=== PATIENT | male | born 1935 | race Caucasian/White ===

== ENCOUNTER 2017-10-09 10:35 | Emergency (ER) | payer MEDICARE ==
[2017-10-09] MEDS ORDERED: KETOROLAC 30 MG/ML 1 ML VIAL IVP STA (11:18)
[2017-10-09] MEDS ORDERED: DIAZEPAM 5 MG/ML 2 ML INJ IVP STA (11:18)
--- NOTE | 2017-10-09 11:22 | ED ---
General Adult HPI - General Chief complaint: Neck Pain/Injury Stated complaint: Neck Pain Time Seen by Provider: 10/09/17 10:47 Source: patient Mode of arrival: wheelchair Limitations: physical limitation - History of Present Illness Initial comments: Patient is an 82-year-old male presents with a chief complaint of left-sided neck pain. The patient states this started yesterday. The patient cannot identify an inciting incident. Patient states that overnight his neck pain became much worse. He has limited range of motion with turning his head to the left. He describes pain along the left lateral aspect of his neck along the sternocleidomastoid muscle and extending into his mormonism. There are no alleviating factors. Timing is constant. - Related Data Home Medications Medication Instructions Recorded Confirmed Simvastatin [Zocor] 40 mg PO HS 11/14/13 10/09/17 Warfarin [Coumadin] 2.5 mg PO SUMOTUWEFRSA 10/09/17 10/09/17 Warfarin [Coumadin] 5 mg PO TH 10/09/17 10/09/17 Previous Rx's Medication Instructions Recorded Aspirin 81 mg PO DAILY #30 chew 12/27/15 Diazepam [Valium] 5 mg PO DAILY PRN 3 Days #3 tab 10/09/17 Ibuprofen [Motrin] 800 mg PO TID #20 tab 10/09/17 Allergies Allergy/AdvReac Type Severity Reaction Status Date / Time No Known Allergies Allergy Verified 10/09/17 11:23 Review of Systems ROS Statement: Those systems with pertinent positive or pertinent negative responses have been documented in the HPI. ROS Other: All systems not noted in ROS Statement are negative. Musculoskeletal: Reports: other (Neck pain) Past Medical History Past Medical History: Atrial Fibrillation, CVA/TIA, Eye Disorder, Hearing Disorder / Deafness, Hyperlipidemia, Hypertension Additional Past Medical History / Comment(s): CVA 2010; POSS TIA 12/24/15. PAD , LOWER EXTREMITIES. HX CATARACTS. RT URETERAL CALCULUS CURRENTLY, C/O PAIN AND BLOOD IN URINE. History of Any Multi-Drug Resistant Organisms: None Reported Past Surgical History: Cholecystectomy, Hernia Repair Additional Past Surgical History / Comment(s): EXC CATARACTS W/ IMPLANTS. NOVEMBER 2013 ABD AORTOGRAM, 11/2015. RT ESWL 01/15/16. Past Anesthesia/Blood Transfusion Reactions: No Reported Reaction Past Psychological History: No Psychological Hx Reported Smoking Status: Current every day smoker Past Alcohol Use History: Occasional Past Drug Use History: None Reported - Past Family History Mother Family Medical History: Diabetes Mellitus General Exam Limitations: physical limitation General appearance: alert, in no apparent distress Head exam: Present: atraumatic, normocephalic Eye exam: Present: normal appearance, PERRL ENT exam: Present: mucous membranes moist, TM's normal bilaterally Neck exam: Present: tenderness, other (Patient is tenderness along the SCM on the left. There is limited range of motion, especially when turning his neck to the left and looking down.) Respiratory exam: Present: normal lung sounds bilaterally. Absent: respiratory distress, wheezes Cardiovascular Exam: Present: regular rate, normal rhythm GI/Abdominal exam: Present: soft. Absent: distended, tenderness Rectal exam: Present: deferred Extremities exam: Present: normal inspection Back exam: Present: normal inspection Neurological exam: Present: alert, oriented X3 Psychiatric exam: Present: normal affect, normal mood Skin exam: Present: warm, dry, intact Course Vital Signs 10/09/17 10/09/17 10/09/17 10:36 11:40 12:40 Temperature 97.0 F L Pulse Rate 84 76 68 Respiratory 18 20 20 Rate Blood Pressure 133/86 162/87 142/88 O2 Sat by Pulse 100 98 98 Oximetry 10/09/17 13:40 Temperature Pulse Rate 64 Respiratory 20 Rate Blood Pressure 157/86 O2 Sat by Pulse 98 Oximetry Medical Decision Making - Medical Decision Making Patient presents with a chief complaint of neck pain. On initial evaluation, vital signs are stable, patient is in mild distress secondary to pain. History and physical examination most consistent with torticollis however given patient' s past medical history he will be evaluated with basic blood work, INR, and EKG. Patient given Toradol and Valium for pain control. 2:12 PM Lab evaluation this patient is unremarkable, INR is stable at 2.4. EKG performed at 11:24 AM shows atrial fibrillation but is otherwise unremarkable. Patient states that he has a history of atrial fibrillation. After treatment, the patient was treated further with myofascial release with moderate jew of range of motion. The patient states that he feels better. At this time, the patient is stable for discharge and follow-up with primary care. He was instructed to follow up in 1-2 days, return to the emergency department if symptoms worsen or change. The was instructed to find a ride home from the emergency department given that he was given a dose of Valium. He was prescribed Motrin 3 tablets of Valium and instructed to use them only if he is having trouble getting to sleep. Patient verbalizes understanding and is stable for discharge at this time. - Lab Data Result diagrams: 10/09/17 11:45 10/09/17 11:45 Lab Results 10/09/17 10/09/17 10/09/17 Range/Units 11:45 11:45 11:45 WBC 8.6 (3.8-10.6) k/uL RBC 5.20 (4.30-5.90) m/uL Hgb 16.6 (13.0-17.5) gm/dL Hct 49.7 (39.0-53.0) % MCV 95.7 (80.0-100.0) fL MCH 31.9 (25.0-35.0) pg MCHC 33.3 (31.0-37.0) g/dL RDW 13.0 (11.5-15.5) % Plt Count 253 (150-450) k/uL Neutrophils % 69 % Lymphocytes % 19 % Monocytes % 7 % Eosinophils % 3 % Basophils % 1 % Neutrophils # 6.0 (1.3-7.7) k/uL Lymphocytes # 1.6 (1.0-4.8) k/uL Monocytes # 0.6 (0-1.0) k/uL Eosinophils # 0.3 (0-0.7) k/uL Basophils # 0.1 (0-0.2) k/uL PT 21.8 H (9.0-12.0) sec INR 2.4 H (<1.2) Sodium 144 (137-145) mmol/L Potassium 4.9 (3.5-5.1) mmol/L Chloride 109 H (98-107) mmol/L Carbon Dioxide 22 (22-30) mmol/L Anion Gap 13 mmol/L BUN 17 (9-20) mg/dL Creatinine 0.94 (0.66-1.25) mg/dL Est GFR (CKD-EPI)AfAm 89 (>60 ml/min/1.73 sqM) Est GFR (CKD-EPI)NonAf 77 (>60 ml/min/1.73 sqM) Glucose 82 (74-99) mg/dL Calcium 9.0 (8.4-10.2) mg/dL Disposition Clinical Impression: Strain of neck muscle, Torticollis Disposition: HOME SELF-CARE Condition: Good Instructions: Spasmodic Torticollis (ED) Prescriptions: Diazepam [Valium] 5 mg PO DAILY PRN 3 Days #3 tab PRN Reason: muscle spasm Ibuprofen [Motrin] 800 mg PO TID #20 tab Is patient prescribed a controlled substance at d/c from ED?: Yes When asked, does pt state using other controlled substances?: No If prescribed controlled substance>3 days was MAPS reviewed?: Yes Referrals: None,Stated [Primary Care Provider] - 1-2 days Yelena Last MD [STAFF PHYSICIAN] - 1-2 days
[2017-10-09 12:02] LABS: Basophils # (A) 0.1 k/uL (0-0.2); Basophils % (A) 1 %; Eosinophils # (A) 0.3 k/uL (0-0.7); Eosinophils % (A) 3 %; HCT 49.7 % (39.0-53.0); HGB 16.6 gm/dL (13.0-17.5); Lymphocytes # (A) 1.6 k/uL (1.0-4.8); Lymphocytes % (A) 19 %; MCH 31.9 pg (25.0-35.0); MCHC 33.3 g/dL (31.0-37.0); MCV 95.7 fL (80.0-100.0); Mean Platelet Volume 7.7; Monocytes # (A) 0.6 k/uL (0-1.0); Monocytes % (A) 7 %; Neutrophils % (A) 69 %; Platelet Count 253 k/uL (150-450); WBC 8.6 k/uL (3.8-10.6)
[2017-10-09 12:10] LABS: INR 2.4 (<1.2); Prothrombin Time 21.8 sec (9.0-12.0)
[2017-10-09 12:11] LABS: Potassium 4.9 mmol/L (3.5-5.1)
[2017-10-09 13:58] VITALS: RESP 20
[2017-10-09 14:51] VITALS: BP 151/56; PULSE 71; TEMP 98.3
== END 2017-10-09 14:45 | disposition home or self-care (01) ==
LOC: EC 10:35
DX: S16.1XXA Strain of muscle, fascia and tendon at neck level, initial encounter (principal); M43.6 Torticollis; I48.91 Unspecified atrial fibrillation; E78.5 Hyperlipidemia, unspecified; I10 Essential (primary) hypertension; F17.200 Nicotine dependence, unspecified, uncomplicated; Z86.73 Personal history of transient ischemic attack (TIA), and cerebral infarction without residual deficits; Z79.01 Long term (current) use of anticoagulants; Z79.899 Other long term (current) drug therapy; X58.XXXA Exposure to other specified factors, initial encounter
CPT/HCPCS: 99283; 96374; 96375; 36415; 93005; 80048; 85025; 85610; J3360; J1885

== ENCOUNTER → 2018-02-16 | Outpatient (CLI) | payer MEDICARE ==
[2018-02-16 10:53] LABS: Basophils # (A) 0.1 k/uL (0-0.2); Basophils % (A) 0 %; Eosinophils # (A) 0.4 k/uL (0-0.7); Eosinophils % (A) 4 %; HGB 15.5 gm/dL (13.0-17.5); Lymphocytes # (A) 2.4 k/uL (1.0-4.8); Lymphocytes % (A) 23 %; MCH 31.4 pg (25.0-35.0); MCHC 32.3 g/dL (31.0-37.0); MCV 97.3 fL (80.0-100.0); Mean Platelet Volume 7.6; Monocytes # (A) 0.6 k/uL (0-1.0); Monocytes % (A) 6 %; Neutrophils # (A) 6.8 k/uL (1.3-7.7); Neutrophils % (A) 65 %; Platelet Count 276 k/uL (150-450); RBC 4.93 m/uL (4.30-5.90); RDW 13.1 % (11.5-15.5); WBC 10.6 k/uL (3.8-10.6)
[2018-02-16 10:59] LABS: Albumin 4.1 g/dL (3.5-5.0); Calcium 9.1 mg/dL (8.4-10.2); Potassium 4.1 mmol/L (3.5-5.1); Total Bilirubin 0.7 mg/dL (0.2-1.3); Total Protein 7.4 g/dL (6.3-8.2)
== END | disposition home or self-care (01) ==
LOC: LABWHC1 10:20
PROVIDERS: ATTEND Internal Medicine Cardiovascular Disease
DX: E78.5 Hyperlipidemia, unspecified (principal); I48.91 Unspecified atrial fibrillation
CPT/HCPCS: 36415; 80053; 80061; 85025

== ENCOUNTER → 2018-11-26 | Outpatient (CLI) | payer MEDICARE ==
[2018-11-26 17:54] LABS: African American GFR (CKD) 65.3 (60.0-200.0); Albumin 4.2 g/dL (3.80-4.90); Albumin/Globulin Ratio 1.83 (1.60-3.17); Anion Gap 11.3 mmol/L (4.00-12.00); BUN/Creat Ratio 12.5 Ratio (12.00-20.00); Calcium 9.1 mg/dL (8.7-10.3); Carbon Dioxide 26.7 mmol/L (21.6-31.8); Globulin 2.3 g/dL (1.6-3.3); LDL Cholesterol,Calculated 65.4 mg/dL (0.0-131.0); Potassium 4.2 mmol/L (3.5-5.5); Total Bilirubin 0.4 mg/dL (0.3-1.2); Total Protein 6.5 g/dL (6.2-8.2); VLDL Calculation 56.6 mg/dL (5.00-40.00)
== END | disposition home or self-care (01) ==
LOC: LABWHC1 10:15
PROVIDERS: ATTEND Internal Medicine Cardiovascular Disease
DX: I48.91 Unspecified atrial fibrillation (principal); E78.5 Hyperlipidemia, unspecified
CPT/HCPCS: 36415; 80053; 80061

== ENCOUNTER 2019-11-12 03:46 | Emergency (ER) | payer MEDICARE ==
[2019-11-12 03:51] VITALS: RESP 18; TEMP 98
[2019-11-12] MEDS ORDERED: HYDROmorphone 1 MG/ML 1 ML SYRINGE IVP STA (03:51)
[2019-11-12 04:07] LABS: Basophils % (A) 0 %; Eosinophils # (A) 0.2 k/uL (0-0.7); Eosinophils % (A) 1 %; HCT 51.2 % (39.0-53.0); HGB 16.6 gm/dL (13.0-17.5); Lymphocytes # (A) 0.7 k/uL (1.0-4.8); Lymphocytes % (A) 5 %; MCH 31.3 pg (25.0-35.0); MCHC 32.4 g/dL (31.0-37.0); MCV 96.7 fL (80.0-100.0); Mean Platelet Volume 8.1; Monocytes # (A) 0.6 k/uL (0-1.0); Monocytes % (A) 4 %; Neutrophils # (A) 12.5 k/uL (1.3-7.7); Neutrophils % (A) 89 %; Platelet Count 240 k/uL (150-450); RDW 13.3 % (11.5-15.5); WBC 14.1 k/uL (3.8-10.6)
[2019-11-12 04:11] LABS: INR 2.7 (<1.2); Prothrombin Time 26.3 sec (9.0-12.0)
[2019-11-12 04:12] LABS: Albumin 4.4 g/dL (3.5-5.0); Partial Thromboplastin Time 33.9 sec (22.0-30.0); Potassium 4.5 mmol/L (3.5-5.1); Total Bilirubin 0.8 mg/dL (0.2-1.3); Total Protein 7.6 g/dL (6.3-8.2)
[2019-11-12] MEDS ORDERED: LABETALOL 5 MG/ML VIAL MDV IVP STA (04:15)
[2019-11-12 04:31] LABS: Appearance,Urine Clear (Clear); Bilirubin,Urine Negative (Negative); Blood,Urine Moderate (Negative); Color,Urine Yellow; Glucose,Urine (UA) Negative (Negative); Ketones,Urine 1+ (Negative); Leukocyte Esterase,Urine Trace (Negative); Mucus,Urine Rare /hpf; Nitrite,Urine Negative (Negative); PH, Urine 5.5 (5.0-8.0); Protein,Urine 1+ (Negative); RBC,Urine 2 /hpf (0-5); Specific Gravity,Urine 1.013 (1.001-1.035); Squamous Epithelial Cell,Urine <1 /hpf (0-4); Urobilinogen,Urine <2.0 mg/dL (<2.0); WBC,Urine 5 /hpf (0-5)
--- NOTE | 2019-11-12 05:26 | CT ---
EXAMINATION TYPE: CT abdomen pelvis wo con DATE OF EXAM: 11/12/2019 COMPARISON: 12/30/2015 HISTORY: Flank pain/ abdomnal pain CT DLP: 527.4 mGycm Automated exposure control for dose reduction was used. Exam performed without contrast. Heart is enlarged. There is some mild atelectasis at the lung bases. Liver shows no focal defect. The re are multiple gallstones. The bile ducts are not dilated. Spleen and pancreas appear normal. The st omach is intact. There is no adrenal mass. There is right side perinephric edema. There is right-sided hydronephrosis and proximal hydroureter. I see no ureteral calculus. There are multiple calculi in both kidneys that measure up to 1.4 cm. There is no hydronephrosis of the left kidney. There is no retroperitoneal adenopathy. Bladder distends smoothly. There is large left side scrotal h ernia that contains sigmoid colon. Lower extent of a hernia is not included on the exam. There is no free fluid in the pelvis. There is no mesenteric edema. There is no ascites or free air. I see no evidence of a bowel obstruction. The appendix is lateral and appears normal. The lumbar vert ebra have normal alignment. There is no compression fracture. Posterior elements are intact. The bony pelvis is intact. IMPRESSION: Multiple bilateral renal calculi. Moderate right-sided hydronephrosis and proximal hydroureter. No ob structing calculus seen. There is clearing of the large calculus in the proximal right ureter compare d to old exam. There is significant right side perinephric edema that suggests acute obstruction. Normal appendix. Mild atelectasis at the lung bases. Cholelithiasis unchanged. Large left inguinal hernia unchanged.
--- NOTE | 2019-11-12 06:18 | ED ---
Abdominal Pain HPI - General Chief Complaint: Abdominal Pain Stated Complaint: Abdominal pain Time Seen by Provider: 11/12/19 03:57 Source: patient, EMS Mode of arrival: EMS Limitations: no limitations - History of Present Illness MD Complaint: flank pain Onset/Timin -: hour(s) Location: R flank Radiation: other (Right groin) Migration to: no migration Severity: severe Quality: sharp Consistency: constant Improves With: nothing Worsens With: nothing Associated Symptoms: nausea - Related Data Home Medications Medication Instructions Recorded Confirmed Simvastatin [Zocor] 40 mg PO HS 11/14/13 10/09/17 Warfarin [Coumadin] 2.5 mg PO SUMOTUWEFRSA 10/09/17 10/09/17 Warfarin [Coumadin] 5 mg PO TH 10/09/17 10/09/17 Previous Rx's Medication Instructions Recorded Aspirin 81 mg PO DAILY #30 chew 12/27/15 Diazepam [Valium] 5 mg PO DAILY PRN 3 Days #3 tab 10/09/17 Ibuprofen [Motrin] 800 mg PO TID #20 tab 10/09/17 Allergies Allergy/AdvReac Type Severity Reaction Status Date / Time No Known Allergies Allergy Verified 10/09/17 11:23 Review of Systems ROS Statement: Those systems with pertinent positive or pertinent negative responses have been documented in the HPI. ROS Other: All systems not noted in ROS Statement are negative. Constitutional: Denies: fever, chills Respiratory: Denies: cough, dyspnea Cardiovascular: Denies: chest pain, palpitations, edema Gastrointestinal: Reports: as per HPI, nausea. Denies: abdominal pain, vomiting, diarrhea, constipation Genitourinary: Denies: dysuria, hematuria Musculoskeletal: Denies: back pain Skin: Denies: rash Neurological: Denies: headache, weakness, numbness Past Medical History Past Medical History: Atrial Fibrillation, CVA/TIA, Eye Disorder, Hearing Disorder / Deafness, Hyperlipidemia, Hypertension Additional Past Medical History / Comment(s): CVA 2010; POSS TIA 12/24/15. PAD, LOWER EXTREMITIES. HX CATARACTS. RT URETERAL CALCULUS CURRENTLY, C/O PAIN AND BLOOD IN URINE. History of Any Multi-Drug Resistant Organisms: None Reported Past Surgical History: Cholecystectomy, Hernia Repair Additional Past Surgical History / Comment(s): EXC CATARACTS W/ IMPLANTS. NOVEMBER 2013 ABD AORTOGRAM, 11/2015. RT ESWL 01/15/16. Past Anesthesia/Blood Transfusion Reactions: No Reported Reaction Past Psychological History: No Psychological Hx Reported Smoking Status: Current every day smoker Past Alcohol Use History: Occasional Past Drug Use History: None Reported - Past Family History Mother Family Medical History: Diabetes Mellitus General Exam Limitations: no limitations General appearance: alert, in distress Head exam: Present: atraumatic, normocephalic Eye exam: Present: normal appearance. Absent: scleral icterus, conjunctival injection Respiratory exam: Present: normal lung sounds bilaterally. Absent: respiratory distress, wheezes, rales, rhonchi, stridor Cardiovascular Exam: Present: regular rate, normal rhythm, systolic murmur, other (Patient is wearing site monitor). Absent: diastolic murmur, rubs, gallop GI/Abdominal exam: Present: soft, normal bowel sounds. Absent: distended, tenderness, guarding, rebound, rigid, mass, pulsatile mass, hernia Extremities exam: Present: normal inspection, normal capillary refill. Absent: pedal edema, calf tenderness Back exam: Present: normal inspection. Absent: CVA tenderness (R), CVA tenderness (L) Neurological exam: Present: alert Skin exam: Present: warm, dry, intact, normal color. Absent: rash Course Vital Signs 11/12/19 11/12/19 03:47 06:19 Temperature 98 F Pulse Rate 89 70 Respiratory 18 18 Rate Blood Pressure 195/137 140/76 O2 Sat by Pulse 98 98 Oximetry Medical Decision Making - Medical Decision Making Patient is a 4-year-old man with history kidney stones, who states she is having identical pain to previous episodes stone. Patient workup does reveal right- sided hydronephrosis and hydroureter there is not an obstructing stone visualized with the patient's pain did spontaneously resolve and clinical picture consistent with stone passed just prior to CT. The patient is observed and there is no recurrence of pain and he does request to go home. We discussed other return parameters and he will follow with urology. - Lab Data Result diagrams: 11/12/19 03:50 11/12/19 03:50 Lab Results 11/12/19 11/12/19 11/12/19 Range/Units 03:50 03:50 03:50 WBC 14.1 H (3.8-10.6) k/uL RBC 5.30 (4.30-5.90) m/uL Hgb 16.6 (13.0-17.5) gm/dL Hct 51.2 (39.0-53.0) % MCV 96.7 (80.0-100.0) fL MCH 31.3 (25.0-35.0) pg MCHC 32.4 (31.0-37.0) g/dL RDW 13.3 (11.5-15.5) % Plt Count 240 (150-450) k/uL Neutrophils % 89 % Lymphocytes % 5 % Monocytes % 4 % Eosinophils % 1 % Basophils % 0 % Neutrophils # 12.5 H (1.3-7.7) k/uL Lymphocytes # 0.7 L (1.0-4.8) k/uL Monocytes # 0.6 (0-1.0) k/uL Eosinophils # 0.2 (0-0.7) k/uL Basophils # 0.0 (0-0.2) k/uL PT 26.3 H (9.0-12.0) sec INR 2.7 H (<1.2) APTT 33.9 H (22.0-30.0) sec Sodium 136 L (137-145) mmol/L Potassium 4.5 (3.5-5.1) mmol/L Chloride 105 (98-107) mmol/L Carbon Dioxide 19 L (22-30) mmol/L Anion Gap 12 mmol/L BUN 15 (9-20) mg/dL Creatinine 1.04 (0.66-1.25) mg/dL Est GFR (CKD-EPI)AfAm 77 (>60 ml/min/1.73 sqM) Est GFR (CKD-EPI)NonAf 67 (>60 ml/min/1.73 sqM) Glucose 116 H (74-99) mg/dL Calcium 9.0 (8.4-10.2) mg/dL Total Bilirubin 0.8 (0.2-1.3) mg/dL AST 28 (17-59) U/L ALT 16 (4-49) U/L Alkaline Phosphatase 88 (38-126) U/L Troponin I (0.000-0.034) ng/mL Total Protein 7.6 (6.3-8.2) g/dL Albumin 4.4 (3.5-5.0) g/dL Urine Color Urine Appearance (Clear) Urine pH (5.0-8.0) Ur Specific [place] (1.001-1.035) Urine Protein (Negative) Urine Glucose (UA) (Negative) Urine Ketones (Negative) Urine Blood (Negative) Urine Nitrite (Negative) Urine Bilirubin (Negative) Urine Urobilinogen (<2.0) mg/dL Ur Leukocyte Esterase (Negative) Urine RBC (0-5) /hpf Urine WBC (0-5) /hpf Ur Squamous Epith Cells (0-4) /hpf Urine Mucus (None) /hpf 11/12/19 11/12/19 Range/Units 03:50 04:01 WBC (3.8-10.6) k/uL RBC (4.30-5.90) m/uL Hgb (13.0-17.5) gm/dL Hct (39.0-53.0) % MCV (80.0-100.0) fL MCH (25.0-35.0) pg MCHC (31.0-37.0) g/dL RDW (11.5-15.5) % Plt Count (150-450) k/uL Neutrophils % % Lymphocytes % % Monocytes % % Eosinophils % % Basophils % % Neutrophils # (1.3-7.7) k/uL Lymphocytes # (1.0-4.8) k/uL Monocytes # (0-1.0) k/uL Eosinophils # (0-0.7) k/uL Basophils # (0-0.2) k/uL PT (9.0-12.0) sec INR (<1.2) APTT (22.0-30.0) sec Sodium (137-145) mmol/L Potassium (3.5-5.1) mmol/L Chloride (98-107) mmol/L Carbon Dioxide (22-30) mmol/L Anion Gap mmol/L BUN (9-20) mg/dL Creatinine (0.66-1.25) mg/dL Est GFR (CKD-EPI)AfAm (>60 ml/min/1.73 sqM) Est GFR (CKD-EPI)NonAf (>60 ml/min/1.73 sqM) Glucose (74-99) mg/dL Calcium (8.4-10.2) mg/dL Total Bilirubin (0.2-1.3) mg/dL AST (17-59) U/L ALT (4-49) U/L Alkaline Phosphatase (38-126) U/L Troponin I <0.012 (0.000-0.034) ng/mL Total Protein (6.3-8.2) g/dL Albumin (3.5-5.0) g/dL Urine Color Yellow Urine Appearance Clear (Clear) Urine pH 5.5 (5.0-8.0) Ur Specific [place] 1.013 (1.001-1.035) Urine Protein 1+ H (Negative) Urine Glucose (UA) Negative (Negative) Urine Ketones 1+ H (Negative) Urine Blood Moderate H (Negative) Urine Nitrite Negative (Negative) Urine Bilirubin Negative (Negative) Urine Urobilinogen <2.0 (<2.0) mg/dL Ur Leukocyte Esterase Trace H (Negative) Urine RBC 2 (0-5) /hpf Urine WBC 5 (0-5) /hpf Ur Squamous Epith Cells <1 (0-4) /hpf Urine Mucus Rare H (None) /hpf Disposition Clinical Impression: Calculus of kidney Disposition: HOME SELF-CARE Condition: Good Instructions (If sedation given, give patient instructions): Kidney Stones (ED) Is patient prescribed a controlled substance at d/c from ED?: No Referrals: None,Stated [Primary Care Provider] - 1-2 days Oskar Alcala MD [STAFF PHYSICIAN] - 1-2 days
[2019-11-12 06:27] VITALS: BP 140/76; PULSE 70
== END 2019-11-12 06:28 | disposition home or self-care (01) ==
LOC: EC 03:46
DX: N13.2 Hydronephrosis with renal and ureteral calculous obstruction (principal); F17.200 Nicotine dependence, unspecified, uncomplicated; E78.5 Hyperlipidemia, unspecified; I48.91 Unspecified atrial fibrillation; I10 Essential (primary) hypertension; Z79.01 Long term (current) use of anticoagulants; Z79.899 Other long term (current) drug therapy; Z86.73 Personal history of transient ischemic attack (TIA), and cerebral infarction without residual deficits; Z98.42 Cataract extraction status, left eye; Z98.41 Cataract extraction status, right eye; Z96.1 Presence of intraocular lens; Z90.49 Acquired absence of other specified parts of digestive tract
CPT/HCPCS: 99285; 96374; 96375; 36415; 93005; 80053; 84484; 85025; 85610; 85730; 81001; 74176; J1170

== ENCOUNTER → 2021-12-23 | Outpatient (CLI) | payer MEDICARE ==
[2021-12-23 14:40] LABS: African American GFR (CKD) 55.5 (60.0-200.0); Anion Gap 9.8 mmol/L (10.00-18.00); BUN/Creat Ratio 15.78 Ratio (12.00-20.00); Blood Urea Nitrogen 21.3 mg/dL (9.0-27.0); Calcium 9.3 mg/dL (8.7-10.3); Carbon Dioxide 26.4 mmol/L (20.0-27.5); Non-African American GFR(CKD) 47.9 (60.0-200.0)
== END | disposition home or self-care (01) ==
LOC: LABWHC1 10:07
PROVIDERS: ATTEND Internal Medicine Interventional Cardiology
DX: I10 Essential (primary) hypertension (principal)
CPT/HCPCS: 36415; 80048

== ENCOUNTER 2022-01-01 15:16 | Inpatient (IN) | payer MEDICARE ==
[2022-01-01 15:34] LABS: Glucose,Whole Blood 92 mg/dL (70-110)
--- NOTE | 2022-01-01 15:38 | ED ---
Neuro HPI - General Chief Complaint: Neuro Symptoms/Deficit Stated Complaint: Neuro Issues Time Seen by Provider: 01/01/22 15:20 Source: patient, EMS Mode of arrival: EMS - History of Present Illness Is the patient presenting with stroke symptoms?: Yes Initial Comments: 86-year-old male past history of TIA, A. fib on Coumadin, hypertension and hyperlipidemia presents to the emergency department with strokelike symptoms. States he went to bed at 1 AM last night. He woke at 11 AM and had stroke symptoms. Has weakness to his right lower extremity and right arm. Also had right facial droop. He attempted to call a neighbor however was having diffi culties. Finally was able to flag someone down around 3 PM who called an ambulance. He is on Coumadin and takes it as directed. Denies any missed doses. Denies any chest or abdominal pain. Has mild associated shortness of breath. No history of heart failure. No recent head trauma. No other a lleviating, precipitating or modifying factors - Related Data Home Medications: Home Medications Medication Instructions Recorded Confirmed Simvastatin [Zocor] 40 mg PO DAILY 11/14/13 01/01/22 Warfarin [Coumadin] 2.5 mg PO HS 01/01/22 01/01/22 lisinopriL [Zestril] 5 mg PO DAILY 01/01/22 01/01/22 Previous Rx's Medication Instructions Recorded Aspirin 81 mg PO DAILY #30 chew 12/27/15 Allergies/Adverse Reactions: Allergies Allergy/AdvReac Type Severity Reaction Status Date / Time No Known Allergies Allergy Verified 01/01/22 17:05 Review of Systems ROS Statement: Those systems with pertinent positive or pertinent negative responses have been documented in the HPI. ROS Other: All systems not noted in ROS Statement are negative. General Exam Limitations: physical limitation General appearance: alert, in no apparent distress, anxious Eye exam: Present: normal appearance, PERRL, EOMI. Absent: scleral icterus, conjunctival injection, periorbital swelling ENT exam: Present: mucous membranes moist, other (right lower facial droop) Neck exam: Present: normal inspection. Absent: tenderness, meningismus, lymphadenopathy Respiratory exam: Present: normal lung sounds bilaterally. Absent: respiratory distress, wheezes, rales, rhonchi, stridor Cardiovascular Exam: Present: normal rhythm, bradycardia Extremities exam: Present: other (3/5 strength RLE. Drift RUE. 5/5 muscle strength LUE/LLE. ) Neurological exam: Present: alert, oriented X3, other (mild dysarthria and expressive aphasia) Skin exam: Present: warm, dry, intact, normal color. Absent: rash Stroke MDM - Lab Data Result diagrams: 01/01/22 15:21 01/01/22 15:21 Lab Results 01/01/22 01/01/22 01/01/22 Range/Units 15:20 15:21 15:21 WBC 8.4 (3.8-10.6) k/uL RBC 4.92 (4.30-5.90) m/uL Hgb 14.3 (13.0-17.5) gm/dL Hct 45.4 (39.0-53.0) % MCV 92.3 (80.0-100.0) fL MCH 29.0 (25.0-35.0) pg MCHC 31.5 (31.0-37.0) g/dL RDW 15.3 (11.5-15.5) % Plt Count 230 (150-450) k/uL MPV 8.4 Neutrophils % 71 % Lymphocytes % 17 % Monocytes % 7 % Eosinophils % 3 % Basophils % 1 % Neutrophils # 6.0 (1.3-7.7) k/uL Lymphocytes # 1.4 (1.0-4.8) k/uL Monocytes # 0.6 (0-1.0) k/uL Eosinophils # 0.2 (0-0.7) k/uL Basophils # 0.1 (0-0.2) k/uL Hypochromasia Slight PT 27.0 H (9.0-12.0) sec INR 2.7 H (<1.2) APTT 34.3 H (22.0-30.0) sec Sodium (137-145) mmol/L Potassium (3.5-5.1) mmol/L Chloride (98-107) mmol/L Carbon Dioxide (22-30) mmol/L Anion Gap mmol/L BUN (9-20) mg/dL Creatinine (0.66-1.25) mg/dL Est GFR (CKD-EPI)AfAm (>60 ml/min/1.73 sqM) Est GFR (CKD-EPI)NonAf (>60 ml/min/1.73 sqM) Glucose (74-99) mg/dL POC Glucose (mg/dL) 92 (70-110) mg/dL POC Glu Reclamation Worker Faith Mchugh Calcium (8.4-10.2) mg/dL Total Bilirubin (0.2-1.3) mg/dL AST (17-59) U/L ALT (4-49) U/L Alkaline Phosphatase (38-126) U/L Troponin I (0.000-0.034) ng/mL NT-Pro-B Natriuret Pep pg/mL Total Protein (6.3-8.2) g/dL Albumin (3.5-5.0) g/dL 01/01/22 01/01/22 01/01/22 Range/Units 15:21 15:21 15:21 WBC (3.8-10.6) k/uL RBC (4.30-5.90) m/uL Hgb (13.0-17.5) gm/dL Hct (39.0-53.0) % MCV (80.0-100.0) fL MCH (25.0-35.0) pg MCHC (31.0-37.0) g/dL RDW (11.5-15.5) % Plt Count (150-450) k/uL MPV Neutrophils % % Lymphocytes % % Monocytes % % Eosinophils % % Basophils % % Neutrophils # (1.3-7.7) k/uL Lymphocytes # (1.0-4.8) k/uL Monocytes # (0-1.0) k/uL Eosinophils # (0-0.7) k/uL Basophils # (0-0.2) k/uL Hypochromasia PT (9.0-12.0) sec INR (<1.2) APTT (22.0-30.0) sec Sodium 142 (137-145) mmol/L Potassium 4.7 (3.5-5.1) mmol/L Chloride 107 (98-107) mmol/L Carbon Dioxide 24 (22-30) mmol/L Anion Gap 11 mmol/L BUN 14 (9-20) mg/dL Creatinine 1.26 H (0.66-1.25) mg/dL Est GFR (CKD-EPI)AfAm 60 (>60 ml/min/1.73 sqM) Est GFR (CKD-EPI)NonAf 52 (>60 ml/min/1.73 sqM) Glucose 96 (74-99) mg/dL POC Glucose (mg/dL) (70-110) mg/dL POC Glu Reclamation Worker ID Calcium 9.2 (8.4-10.2) mg/dL Total Bilirubin 0.7 (0.2-1.3) mg/dL AST 27 (17-59) U/L ALT 18 (4-49) U/L Alkaline Phosphatase 113 (38-126) U/L Troponin I <0.012 (0.000-0.034) ng/mL NT-Pro-B Natriuret Pep 1350 pg/mL Total Protein 7.4 (6.3-8.2) g/dL Albumin 4.2 (3.5-5.0) g/dL - Medical Decision Making Upon arrival patient was placed into trauma 2. A thorough history and physical exam was performed patient does have right-sided facial droop, right upper extremity drift and right lower extremity weakness. NIH is assessed and is 7. IV access is established and laboratory studies were conducted. Coumadin level is therapeutic at 2.7. CT of the brain as well as CT angiography is negative for any acute process. CT demonstrates cerebral atrophy and chronic small vessel ischemia. I did speak with Dr. mcintosh. Patient will be medically managed. He is outside the window for TPA and on Coumadin. He was given aspirin and a statin. Patient was agreeable to admission with neurology consultation. He was taken to the floor in stable condition with improvement in the weakness in his right lower extremity EKG demonstrates A. fib with a rate of 58. QRS 104. QTC of 437. No acute ST segment elevations or depressions 01/01/22 19:11 Past Medical History Past Medical History: Atrial Fibrillation, CVA/TIA, Eye Disorder, Hearing Disorder / Deafness, Hyperlipidemia, Hypertension Additional Past Medical History / Comment(s): CVA 2010; POSS TIA 12/24/15. PAD, LOWER EXTREMITIES. HX CATARACTS. RT URETERAL CALCULUS CURRENTLY, C/O PAIN AND BLOOD IN URINE. History of Any Multi-Drug Resistant Organisms: None Reported Past Surgical History: Cholecystectomy, Hernia Repair Additional Past Surgical History / Comment(s): EXC CATARACTS W/ IMPLANTS. NOVEMBER 2013 ABD AORTOGRAM, 11/2015. RT ESWL 01/15/16. Past Anesthesia/Blood Transfusion Reactions: No Reported Reaction Past Psychological History: No Psychological Hx Reported Past Alcohol Use History: Occasional Past Drug Use History: None Reported - Past Family History Mother Family Medical History: Diabetes Mellitus Course Vital Signs 01/01/22 01/01/22 01/01/22 15:18 17:23 18:10 Temperature 98.2 F Pulse Rate 52 L 59 L 68 Respiratory 20 16 Rate Blood Pressure 162/113 204/157 208/98 O2 Sat by Pulse 98 99 Oximetry - Reevaluation(s) Reevaluation #1: Spoke with Dr. Brooks 01/01/22 15:38 Critical Care Time Critical Care Time: Yes Critical Care Time: 35 minutes for code stroke activation Disposition Clinical Impression: Cerebrovascular accident (CVA), Right leg weakness, Facial droop Disposition: ADMITTED IP TO THIS [facility] Condition: Serious Is patient prescribed a controlled substance at d/c from ED?: No Time of Disposition: 17:08 Decision to Admit Reason: Admit from EC Decision Date: 01/01/22 Decision Time: 17:08
--- NOTE | 2022-01-01 15:45 | CT ---
EXAMINATION TYPE: CT brain wo con for TPA DATE OF EXAM: 01/01/2022 COMPARISON: 12/24/2015 HISTORY: CT DLP: mGycm Automated exposure control for dose reduction was used. there is cerebral cortical atrophy. There is hypodensity in the periventricular white matter. There i s no mass effect or midline shift. No sign of intracranial hemorrhage. Calvarium is intact. Skull bas e is intact. IMPRESSION: Cerebral atrophy and chronic small vessel ischemia. No acute intracranial abnormality. No change.
[2022-01-01 15:47] LABS: Basophils # (A) 0.1 k/uL (0-0.2); Basophils % (A) 1 %; Eosinophils # (A) 0.2 k/uL (0-0.7); Eosinophils % (A) 3 %; HCT 45.4 % (39.0-53.0); HGB 14.3 gm/dL (13.0-17.5); Hypochromasia Slight; Lymphocytes # (A) 1.4 k/uL (1.0-4.8); Lymphocytes % (A) 17 %; MCHC 31.5 g/dL (31.0-37.0); MCV 92.3 fL (80.0-100.0); Mean Platelet Volume 8.4; Monocytes # (A) 0.6 k/uL (0-1.0); Monocytes % (A) 7 %; Neutrophils % (A) 71 %; Platelet Count 230 k/uL (150-450); RBC 4.92 m/uL (4.30-5.90); RDW 15.3 % (11.5-15.5); WBC 8.4 k/uL (3.8-10.6)
--- NOTE | 2022-01-01 15:51 | XR ---
EXAMINATION TYPE: XR chest 2V DATE OF EXAM: 01/01/2022 COMPARISON: 12/24/2015 HISTORY: Altered mental status TECHNIQUE: 2 views FINDINGS: There is some pulmonary interstitial edema. There is slight blunting of the costophrenic an gles. Heart is borderline enlarged. IMPRESSION: There is some congestive heart failure which appears new compared to old exam. Small pleu ral effusions.
[2022-01-01 16:02] LABS: Albumin 4.2 g/dL (3.5-5.0); Calcium 9.2 mg/dL (8.4-10.2); Potassium 4.7 mmol/L (3.5-5.1); Total Bilirubin 0.7 mg/dL (0.2-1.3); Total Protein 7.4 g/dL (6.3-8.2)
--- NOTE | 2022-01-01 16:10 | CT ---
EXAMINATION TYPE: CT angio head neck DATE OF EXAM: 01/01/2022 COMPARISON: None HISTORY: Neuro deficit, acute, stroke suspected CT DLP: 461.4 mGycm Automated exposure control for dose reduction was used. CONTRAST: Performed with IV Contrast, patient injected with 65ml mL of Isovue 370. Images obtained from the aortic arch to the brain with IV contrast. There are 3-D post processed imag es. There is normal branching pattern of the great vessels on the aortic arch. There is atheromatous merrill ges. There is arterial flow in both subclavian arteries. There is arterial flow in the common interna l and external cardiac arteries bilaterally. There is some plaque formation at the origins of both in ternal carotid arteries with 50% stenosis at the origin left internal carotid artery. There is approx imately 30% stenosis origin of the right internal carotid artery. There is arterial flow in both vert ebral arteries. No evidence of carotid or vertebral artery aneurysm or dissection. There is arterial flow in the vertebral basilar artery system. There is arterial flow in the anterior middle and posterior cerebral arteries. No mass effect. No delfina dence of intracranial aneurysm or neovascularity. No evidence of intracranial hemodynamic arterial st enosis. There is normal enhancement of the venous sinuses. IMPRESSION: No significant intracranial angiographic abnormality. Stenosis at the origins of the left and right internal carotid artery as above.
[2022-01-01 16:16] LABS: INR 2.7 (<1.2); Partial Thromboplastin Time 34.3 sec (22.0-30.0)
[2022-01-01] MEDS ORDERED: ASPIRIN 325 MG TAB PO STA (17:08)
[2022-01-01] MEDS ORDERED: NALOXONE 0.4 MG/ML 1 ML VIAL IV PRN (17:12)
[2022-01-01] MEDS ORDERED: FUROSEMIDE 10 MG/ML 2 ML VIAL IV ONE (17:30)
[2022-01-01] MEDS: ATORVASTATIN 40 MG TAB PO SCH (17:47)
[2022-01-01] MEDS ORDERED: hydrALAZINE HCL 20 MG/ML 1 ML VIAL IVP PRN (17:53)
[2022-01-01] MEDS ORDERED: hydrALAZINE HCL 20 MG/ML 1 ML VIAL IVP STA (18:04)
[2022-01-01] MEDS ORDERED: WARFARIN 2.5 MG TAB PO ONE (22:15)
[2022-01-02] MEDS: hydrALAZINE HCL 20 MG/ML 1 ML VIAL IVP PRN (04:16)
[2022-01-02] MEDS: ATORVASTATIN 40 MG TAB PO SCH (08:30)
[2022-01-02] MEDS: ASPIRIN 81 MG PO SCH (08:30)
[2022-01-02 08:44] LABS: Basophils % (A) 0 %; Eosinophils % (A) 0 %; HCT 47.6 % (39.0-53.0); HGB 14.9 gm/dL (13.0-17.5); Lymphocytes % (A) 9 %; MCH 28.5 pg (25.0-35.0); MCHC 31.4 g/dL (31.0-37.0); MCV 90.9 fL (80.0-100.0); Mean Platelet Volume 8.5; Monocytes # (A) 0.8 k/uL (0-1.0); Monocytes % (A) 7 %; Neutrophils # (A) 9.1 k/uL (1.3-7.7); Neutrophils % (A) 82 %; Platelet Count 263 k/uL (150-450); RBC 5.23 m/uL (4.30-5.90); RDW 15.6 % (11.5-15.5); WBC 11.1 k/uL (3.8-10.6)
[2022-01-02] MEDS ORDERED: polyethylene glycoL 3350 17 GM POWD.PACK PO STA (08:53)
[2022-01-02] MEDS ORDERED: ATORVASTATIN 20 MG TAB PO SCH (09:00)
[2022-01-02] MEDS ORDERED: lisinopriL 5 MG TAB PO SCH (09:00)
[2022-01-02] MEDS ORDERED: ASPIRIN 325 MG TAB PO SCH (09:00)
[2022-01-02 09:05] LABS: ALT 19 U/L (4-49); AST 27 U/L (17-59); African American GFR (CKD) 49 (>60 ml/min/1.73 sqM); Albumin 4.3 g/dL (3.5-5.0); Alkaline Phosphatase 125 U/L (38-126); Anion Gap 14 mmol/L; Blood Urea Nitrogen 17 mg/dL (9-20); Calcium 9.1 mg/dL (8.4-10.2); Carbon Dioxide 21 mmol/L (22-30); Chloride 106 mmol/L (98-107); Glucose 110 mg/dL (74-99); Non-African American GFR(CKD) 42 (>60 ml/min/1.73 sqM); Potassium 4.1 mmol/L (3.5-5.1); Sodium 141 mmol/L (137-145); Total Bilirubin 0.9 mg/dL (0.2-1.3); Total Protein 7.6 g/dL (6.3-8.2)
[2022-01-02 09:12] LABS: INR 3.3 (<1.2); Prothrombin Time 32.5 sec (9.0-12.0)
--- NOTE | 2022-01-02 10:45 | P.HPIM ---
History of Present Illness H&P Date: 01/01/22 Chief Complaint: stroke 86-year-old male past history of TIA, A. fib on Coumadin, hypertension and hyperlipidemia presents to the emergency department with strokelike symptoms. States he went to bed at 1 AM last night. He woke at 11 AM and had stroke symptoms. Has weakness to his right lower extremity and right arm. Also had right facial droop. He attempted to call a neighbor however was having difficulties. Finally was able to flag someone down around 3 PM who called an ambulance. He is on Coumadin and takes it as directed. Denies any missed doses. Denies any chest or abdominal pain. Has mild associated shortness of breath. No history of heart failure. No recent head trauma. No other alleviating, precipitating laughing factors Past Medical History Past Medical History: Atrial Fibrillation, CVA/TIA, Eye Disorder, Hearing Disorder / Deafness, Hyperlipidemia, Hypertension Additional Past Medical History / Comment(s): CVA 2010; POSS TIA 12/24/15. PAD, LOWER EXTREMITIES. HX CATARACTS. RT URETERAL CALCULUS CURRENTLY, C/O PAIN AND BLOOD IN URINE. History of Any Multi-Drug Resistant Organisms: None Reported Past Surgical History: Cholecystectomy, Hernia Repair Additional Past Surgical History / Comment(s): EXC CATARACTS W/ IMPLANTS. NOVEMBER 2013 ABD AORTOGRAM, 11/2015. RT ESWL 01/15/16. Past Anesthesia/Blood Transfusion Reactions: No Reported Reaction Past Psychological History: No Psychological Hx Reported Past Alcohol Use History: Occasional Past Drug Use History: None Reported - Past Family History Mother Family Medical History: Diabetes Mellitus Medications and Allergies Home Medications Medication Instructions Recorded Confirmed Type Simvastatin [Zocor] 40 mg PO DAILY 11/14/13 01/01/22 History Aspirin 81 mg PO DAILY #30 chew 12/27/15 01/01/22 Rx Warfarin [Coumadin] 2.5 mg PO HS 01/01/22 01/01/22 History lisinopriL [Zestril] 5 mg PO DAILY 01/01/22 01/01/22 History Allergies Allergy/AdvReac Type Severity Reaction Status Date / Time No Known Allergies Allergy Verified 01/01/22 17:05 Physical Exam Vitals: Vital Signs Temp Pulse Resp BP Pulse Ox 01/01/22 15:18 98.2 F 52 L 20 162/113 98 Intake and Output 01/01/22 01/01/22 01/01/22 06:59 14:59 22:59 Other: Weight 68.039 kg Constitutional: No acute distress, conversant, pleasant Eyes:Anicteric sclerae, moist conjunctiva, no lid-lag, PERRLA, ENMT: Oropharynx clear, no erythema, exudates Neck: Supple, FROM, no masses, or JVD, No carotid bruits, No thyromegaly Lungs: Clear to auscultation, Clear to percussion, Normal respiratory effort, no accessory muscle use Cardiovascular: Heart regular in rate and rhythm, No murmurs, gallops, or rubs, No peripheral edema Abdominal: Soft, Nontender, no guarding, rebound or rigidity, Normoactive bowel sounds, No hepatomegaly, No splenomegaly, No palpable mass Skin: Normal temperature, tone, texture, turgor, no induration, No subcutaneous nodules, No rash, lesions, No ulcers Extremities: No digital cyanosis, No clubbing, Pedal pulses intact and symmetrical, Radial pulses intact and symmetrical, No calf tenderness Psychiatric: Alert and oriented to person, place and time, appropriate affect, intact judgement Neuro: Right side not truely weak, sensation is less on the right side. +right facial droop. rest of cranial nerves intact Results CBC & Chem 7: 01/02/22 08:04 01/02/22 08:04 Labs: Abnormal Lab Results - Last 24 Hours (Table) 01/01/22 01/01/22 Range/Units 15:21 15:21 PT 27.0 H (9.0-12.0) sec INR 2.7 H (<1.2) APTT 34.3 H (22.0-30.0) sec Creatinine 1.26 H (0.66-1.25) mg/dL Assessment and Plan Plan: Acute CVA Neuro checks every 4 hours Consult neurology MRI of brain Echocardiogram He is already on aspirin, will continue for now. 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 Check echo Lasix 20 mg 1 IV Hypertensive emergency blood pressure was over 230 in the emergency department Hydralazine when necessary for systolic over 180. Chronic atrial fibrillation Continue Coumadin Heart rate controlled Hyperlipidemia Continue statin Admit to inpatient, expected length of stay more than 2 midnights.
[2022-01-02 12:36] LABS: Chol/HDL Ratio 4.48 Ratio; LDL Cholesterol,Calculated 101.9 mg/dL (0.0-131.0)
--- NOTE | 2022-01-02 12:44 | P.PN ---
Subjective Progress Note Date: 01/02/22 Principal diagnosis: Right-sided weakness and numbness Patient states that his symptoms are improved today. Weakness is better and is regaining sensation of the right arm. Right leg is still numb. Continues with right-sided facial weakness and slurred speech although his speech seems to be better today compared to yesterday. Failed bedside swallow screen per nursing. Currently nothing by mouth. Objective - Vital Signs Vital signs: Vital Signs Temp 97.4 F L 01/02/22 08:22 Pulse 89 01/02/22 11:05 Resp 20 01/02/22 11:05 BP 164/91 01/02/22 11:05 Pulse Ox 97 01/02/22 11:05 FiO2 Intake & Output 01/01/22 01/02/22 01/02/22 18:59 06:59 18:59 Output Total 1500 Balance -1500 Weight 68.039 kg 68.039 kg Output: Urine 1500 Straight 700 Other: Voiding Method Urinal Urinal # Voids 1 1 - Exam Constitutional: No acute distress, conversant, pleasant Eyes:Anicteric sclerae, moist conjunctiva, no lid-lag, PERRLA, ENMT: Oropharynx clear, no erythema, exudates Neck: Supple, FROM, no masses, or JVD, No carotid bruits, No thyromegaly Lungs: Clear to auscultation, Clear to percussion, Normal respiratory effort, no accessory muscle use Cardiovascular: Heart regular in rate and rhythm, No murmurs, gallops, or rubs, No peripheral edema Abdominal: Soft, Nontender, no guarding, rebound or rigidity, Normoactive bowel sounds, No hepatomegaly, No splenomegaly, No palpable mass Skin: Normal temperature, tone, texture, turgor, no induration, No subcutaneous nodules, No rash, lesions, No ulcers Extremities: No digital cyanosis, No clubbing, Pedal pulses intact and symmetrical, Radial pulses intact and symmetrical, No calf tenderness Psychiatric: Alert and oriented to person, place and time, appropriate affect, intact judgement Neuro: Right side not truely weak, sensation is less on the right side. +right facial droop. rest of cranial nerves intact - Labs CBC & Chem 7: 01/02/22 08:04 01/02/22 08:04 Labs: Abnormal Lab Results - Last 24 Hours (Table) 01/01/22 01/01/2201/02/22 Range/Units 15:21 15:21 08:04 WBC 11.1 H (3.8-10.6) k/uL RDW 15.6 H (11.5-15.5) % Neutrophils # 9.1 H (1.3-7.7) k/uL PT 27.0 H (9.0-12.0) sec INR 2.7 H (<1.2) APTT 34.3 H (22.0-30.0) sec Carbon Dioxide (22-30) mmol/L Creatinine 1.26 H (0.66-1.25) mg/dL Glucose (74-99) mg/dL HDL Cholesterol (40.00-60.00) mg/dL 01/02/22 01/02/22 Range/Units 08:04 08:04 WBC (3.8-10.6) k/uL RDW (11.5-15.5) % Neutrophils # (1.3-7.7) k/uL PT 32.5 H (9.0-12.0) sec INR 3.3 H (<1.2) APTT (22.0-30.0) sec Carbon Dioxide 21 L (22-30) mmol/L Creatinine 1.50 H (0.66-1.25) mg/dL Glucose 110 H (74-99) mg/dL HDL Cholesterol 37.30 L (40.00-60.00) mg/dL Assessment and Plan Plan: Acute CVA Neuro checks every 4 hours Consult neurology MRI of brain Echocardiogram He is already on aspirin, will continue for now. 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 Check echo Lasix 20 mg 1 IV, given 01/01 ERA Could be cardiorenal vs. dehydration Monitor cr. Avoid nephrotoxic meds. Hypertensive emergency blood pressure was over 230 in the emergency department Hydralazine when necessary for systolic over 180. Lisinopril added. Chronic atrial fibrillation Continue Coumadin Heart rate controlled Hyperlipidemia Continue statin
--- NOTE | 2022-01-02 15:29 | P.CNNES ---
History of Present Illness Consult date: 01/02/22 Requesting physician: Diamond Schmid Reason for Consult: Suspected CVA History of Present Illness: Patient is a 86-year-old right-handed male came to the hospital yesterday at 3:16 PM for evaluation of strokelike symptoms. 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 He woke up at 11 AM yesterday and was going to the bathroom. He states that he turned left to the bathroom, but his right leg went right side, he spun around and fell against the wall and felt disoriented. He noticed weakness in the right leg. He states he felt pain/soreness in his right leg, pointing to the right lower thigh and knee region. He states he couldn't breathe. He states that he called his daughter, who helped him get up, and she brought him to the hospital. He states that usually he does not use any cane or walker. Sometimes when his right leg used to bother previously, he then uses cane. Patient also complained of slurred speech, and also noticed some drooling right side of the mouth off and on. Denies any symptoms in the upper extremities. Denies any visual symptoms, or any numbness or tingling. Vital signs on arrival blood pressure 162/113, pulse rate 52 temperature 98.2 repeat blood pressure 204/157 and then 208/98. Most recent blood pressure 194/93 and 116/74.. Patient's blood test shows normal CBC, INR is 2.7, PTT 34.3. Chem-[address] is [address]onin negative. CT head showed cerebral atrophy and chronic small vessel ischemia. No acute intracranial abnormality. I personally reviewed CT head, agree with the findings. There is questionable hyperdensity in the left MCA. Chest x-ray showed some congestive heart failure which appears new compared to old exam. Pleural effusion. EKG shows atrial fibrillation with slow ventricular response. Aberrant conduction. CTA of head and neck showed no significant intracranial angiographic abnormality. Stenosis at the origin of the left and right internal carotid artery, reported as 50% stenosis on the left and 30% stenosis on the right. I personally reviewed CTA of head and neck, and agree with the findings. No occlusion of the MCA. At present patient states that he is feeling better. His speech is better. Patient states that he had history of 2 strokes in the past, 10 years ago and 2 years ago. He had a kidney stone operation. Patient denies diabetes or hypertension. He states that he has smoked about half pack per day for 40-45 years, but it was "habit" did not inhale. At present he is smoking 5-6 cigaret valerie per day. Some days he does not smoke. He is trying to quit. He drinks 1 beer a day when playing cards which is about twice a week. Patient's home medications include aspirin 81 mg, simvastatin 40 mg, lisinopril 5 mg and Coumadin 2.5 mg daily. Review of Systems Constitutional: Denies chills, Denies fever Eyes: denies diplopia, denies loss of vision Ears, nose, mouth and throat: Denies headache, Denies sore throat Cardiovascular: Reports shortness of breath, Denies chest pain Respiratory: Denies cough Gastrointestinal: Denies abdominal pain, Denies diarrhea, Denies nausea, Denies vomiting Musculoskeletal: Denies myalgias Integumentary: Denies pruritus, Denies rash Neurological: Reports as per HPI Psychiatric: Denies anxiety, Denies depression Endocrine: Denies fatigue, Denies weight change Hematologic/Lymphatic: Denies easy bleeding Allergic/Immunologic: Denies seasonal allergies Past Medical History Past Medical History: Atrial Fibrillation, CVA/TIA, Eye Disorder, Hearing Disorder / Deafness, Hyperlipidemia, Hypertension Additional Past Medical History / Comment(s): CVA 2010; POSS TIA 12/24/15. PAD, LOWER EXTREMITIES. HX CATARACTS. RT URETERAL CALCULUS CURRENTLY, C/O PAIN AND BLOOD IN URINE. History of Any Multi-Drug Resistant Organisms: None Reported Past Surgical History: Cholecystectomy, Hernia Repair Additional Past Surgical History / Comment(s): EXC CATARACTS W/ IMPLANTS. NOVEMBER 2013 ABD AORTOGRAM, 11/2015. RT ESWL 01/15/16. Past Anesthesia/Blood Transfusion Reactions: No Reported Reaction Past Psychological History: No Psychological Hx Reported Past Alcohol Use History: Occasional Past Drug Use History: None Reported - Past Family History Mother Family Medical History: Diabetes Mellitus Medications and Allergies Home Medications Medication Instructions Recorded Confirmed Type Simvastatin [Zocor] 40 mg PO DAILY 11/14/13 01/01/22 History Aspirin 81 mg PO DAILY #30 chew 12/27/15 01/01/22 Rx Warfarin [Coumadin] 2.5 mg PO HS 01/01/22 01/01/22 History lisinopriL [Zestril] 5 mg PO DAILY 01/01/22 01/01/22 History Allergies Allergy/AdvReac Type Severity Reaction Status Date / Time No Known Allergies Allergy Verified 01/01/22 17:05 Physical Examination - Vital Signs Vital Signs: Vital Signs Temp Pulse Pulse Resp BP BP BP 01/02/22 06:10 116/74 01/02/22 04:00 97.6 F 89 18 194/93 174/107 01/02/22 00:00 85 17 153/81 01/01/22 19:43 97.6 F 72 18 167/89 01/01/22 18:10 68 208/98 01/01/22 17:23 59 L 16 204/157 01/01/22 15:18 98.2 F 52 L 20 162/113 Pulse Ox 01/02/22 06:10 01/02/22 04:00 95 01/02/22 00:00 99 01/01/22 19:43 98 01/01/22 18:10 01/01/22 17:23 99 01/01/22 15:18 98 Intake and Output 01/01/22 01/02/22 01/02/22 22:59 06:59 14:59 Output Total 1300 200 Balance -1300 -200 Output: Urine 1300 200 Straight 700 Other: Voiding Method Urinal Urinal # Voids 1 Weight 68.039 kg Patient is an elderly male, in no acute distress. Patient is alert awake oriented to time place and person. Patient knows it is December 2021 and that he is in [facility]. He knows name of the current president. Speech is mildly dysarthric and language functions are normal. Patient can name and repeat very well. Attention, concentration and fund of knowledge is adequate. On cranial nerve examination, pupils are equal, round and reacting to light, visual iverson are full on confrontation, with no neglect on double simultaneous depression. Extraocular muscles are intact with no nystagmus. Face has questionable very minimal right-sided asymmetry, tongue protrudes to the midline. Palatal elevation and sensation normal, hearing is moderately decreas ed, uses hearing aids and shoulder shrug normal, facial sensation normal. On muscle strength testing, there is no pronator drift and the strength is normal in arms and legs distally and proximally. Deep tendon reflexes are symmetric and trace in the upper limbs, 1+ in the lower limbs and plantars are downgoing bilaterally. Sensory to touch is decreased in the right leg as compared to the left. Sensations equal in the arms and facial region. Cerebellar function showed no obvious ataxia for [id number] testing, although patient was slightly slow on the right. No ataxia for [id number] testing on either side. Tone and bulk of muscles normal. Gait deferred.. On general examination, there is no carotid bruit or murmur, S1-S2 audible. Chest is clear on consultation. Abdomen is soft nontender. No organomegaly, bowel sounds present. Peripheral pulses are present. No edema. Results - Laboratory Findings CBC and BMP: 01/02/22 08:04 01/02/22 08:04 Abnormal Lab Findings: Abnormal Labs 01/01/22 01/01/22 15:21 15:21 PT 27.0 H INR 2.7 H APTT 34.3 H Creatinine 1.26 H Assessment and Plan Assessment: * Possible stroke/TIA, manifesting with mild right-sided numbness, slurring. Patient's NIH stroke scale is 2, related to mild slurring and leg numbness. Patient was not a candidate for TPA as he was on Coumadin with therapeutic INR. * Atrial fibrillation on Coumadin * Hypertension * Hyperlipidemia * Hard of hearing Plan: * CTA revealed about 50% stenosis of the left ICA and 30% stenosis of the right ICA. We will check carotid Doppler. * 2-D echo * MRI brain * Lipid panel with cholesterol 167, LDL 101, HDL 37 and triglycerides 139. Continue Lipitor 40 mg daily. (At home on Zocor 40 mg daily). * Hemoglobin A1c * May consider vascular surgery consult based upon results of brain MRI and carotid Doppler. * Continue Coumadin. INR is 3.3. Target INR 2-3. * Patient also on aspirin 81 mg daily. * Dr. Luis E Mack Will resume neurology service in the morning. Thank you for the consult. Time with Patient: Greater than 30
--- NOTE | 2022-01-02 17:50 | US ---
EXAMINATION TYPE: US carotid duplex BILAT DATE OF EXAM: 01/02/2022 COMPARISON: CTA 12/24/2015 CLINICAL HISTORY: Bilateral ICA stenosis, possible stroke/TIA. TECHNIQUE: Carotid duplex ultrasound examination. Indirect Doppler criteria was utilized. FINDINGS: EXAM MEASUREMENTS: RIGHT: Peak Systolic Velocity (PSV) cm/sec ----- Right CCA: 44.4 ----- Right ICA: 77.9 ----- Right ECA: 109.7 ICA/CCA ratio: 1.8 RIGHT: End Diastole cm/sec ----- Right CCA: 7.8 ----- Right ICA: 16.4 ----- Right ECA: 0.0 LEFT: Peak Systolic Velocity (PSV) cm/sec ----- Left CCA: 59.3 ----- Left ICA: 89.7 ----- Left ECA: 92.1 ICA/CCA ratio: 1.5 LEFT: End Diastole cm/sec ----- Left CCA: 8.0 ----- Left ICA: 14.8 ----- Left ECA: 0.0 VERTEBRALS (direction of flow): Right Vertebral: Antegrade Left Vertebral: Antegrade [employer] OFFICER NOTES: Moderate atherosclerotic changes seen bilaterally without significant velocity increases. IMPRESSION: There is antegrade flow in the vertebral arteries. The images and measurements suggest close to 50% s tenosis in both internal carotid arteries. There is some progression of the plaque formation compared to old exam. Criteria for Assigning % of Stenosis / Diameter reduction (Estimation based on the indirect measurements of the internal carotid artery velocities (ICA PSV). 1. Normal (no stenosis)=ICA PSV < 125 cm/s: ratio < 2.0: ICA EDV<40 cm/s. 2. Less than 50% stenosis=ICA PSV < 125 cm/s: ratio < 2.0: ICA EDV<40 cm/s. 3. 50 to 69% stenosis=ICA PSV of 125 to 230 cm/s: ration 2.0 ? 4.0: ICA EDV 40-100 cm/s. 4. Greater than 70% stenosis to near occlusion= ICA PSV > 230 cm/s: ratio > 4.0: ICA EDV > 100 cm/s. 5. Near occlusion= ICA PSV velocities may be low or undetectable: variable ratio and ICA EDV. 6. Total occlusion=unable to detect flow.
[2022-01-02] MEDS ORDERED: WARFARIN 0.5 MG TAB PO ONE (18:00)
[2022-01-03] MEDS: hydrALAZINE HCL 20 MG/ML 1 ML VIAL IVP PRN (04:18)
[2022-01-03 08:03] LABS: Basophils % (A) 0 %; Eosinophils % (A) 0 %; HCT 49.6 % (39.0-53.0); HGB 15.6 gm/dL (13.0-17.5); Lymphocytes % (A) 9 %; MCH 28.6 pg (25.0-35.0); MCHC 31.5 g/dL (31.0-37.0); MCV 90.8 fL (80.0-100.0); Mean Platelet Volume 8.4; Monocytes # (A) 0.7 k/uL (0-1.0); Monocytes % (A) 6 %; Neutrophils # (A) 9.2 k/uL (1.3-7.7); Neutrophils % (A) 82 %; Platelet Count 268 k/uL (150-450); RBC 5.47 m/uL (4.30-5.90); RDW 15.5 % (11.5-15.5); WBC 11.1 k/uL (3.8-10.6)
[2022-01-03 08:04] LABS: INR 3.5 (<1.2); Prothrombin Time 35.1 sec (9.0-12.0)
[2022-01-03 08:18] LABS: Magnesium 1.8 mg/dL (1.6-2.3); Potassium 4.1 mmol/L (3.5-5.1)
[2022-01-03] MEDS: ACETAMINOPHEN TAB 325 MG TAB PO PRN ×2 (09:34→23:09)
[2022-01-03] MEDS: ASPIRIN 81 MG PO SCH (09:34)
[2022-01-03] MEDS: amLODIPine 5 MG TAB PO SCH (09:34)
[2022-01-03] MEDS: ATORVASTATIN 40 MG TAB PO SCH (09:34)
--- NOTE | 2022-01-03 10:08 | P.PN ---
Subjective Progress Note Date: 01/03/22 Hospital course: Patient is a very pleasant 86-year-old male with a past medical history of atrial fibrillation on anticoagulation with Coumadin, hypertension, hyperlipidemia, and history of a CVA in 2010 and TIA in 2016. Patient presented to the emergency department on 01/01/22 with a chief complaint of right-sided weakness, right-sided facial droop, and slurred speech. Patient underwent full evaluation in the emergency department. CBC unremarkable. CMP revealing an acute kidney injury with BUN is 14, creatinine 1.26, GFR 52. INR was therapeutic at 2.7. CT head was completed showing cerebral atrophy and chronic small vessel ischemia negative for acute intercranial process. CTA head negative for significant intracranial angiographic abnormality. CT neck revealing stenosis at the origins of both internal carotid arteries with 50% stenosis at the origin of the left internal carotid artery and 30% stenosis at the origin of the right internal carotid artery. EKG revealed atrial fibrillation with a slow ventricular response at 58 bpm. Patient admitted under our services with consultation to neurology. Hemoglobin A1c 5.8%. Lipid profile unremarkable with the exception of low HDL of 37.30. Carotid Dopplers completed revealing antegrade flow in the vertebral arteries with close to 50% stenosis in both internal carotid arteries with reports of some progression of the plaque formation compared to previous examination completed on 12/24/2015. Patient underwent MRI which revealed acute to subacute infarct measuring 1 cm in the left parietal periventricular white matter with a punctate 1-2 mm acute distress of acute infarct in the left cerebral hemisphere. Physical exam: Patient seen and fully evaluated at bedside this morning. Patient was eating breakfast. Patient continues to have difficulties with speech was noted slurred speech and garbled speech at times. Patient does have slight right-sided facial droop but appears to have full movement and strength of bilateral upper extremities and only minimally noted weakness in right lower extremity rated 4 out of 5 compared to left lower extremities 5 out of 5. Patient currently denies having any headache, lightheadedness, dizziness, chest pain, palpitations, shortness of breath, nausea, vomiting, or any other complaints. Patient reports continued decreased sensation mainly in right lower extremity. Vital signs reviewed and stable. General: Nontoxic, no distress and appears stated age. Derm: Skin warm and dry, normal coloration for ethnicity. Head: Atraumatic, normocephalic and symmetric. Eyes: EOMs intact, no lid lag, and anicteric sclera Mouth: no lip lesions, mucus membranes moist Cardiovascular: regular rate and rhythm with normal S1S2, no murmur, positive posterior tibial pulses bilaterally, and cap refill < 2 seconds. Lungs: Respirations even, regular, and unlabored on room air. Lungs CTA bilaterally, no rhonchi, no rales, no wheezing, and no accessory muscle usage. Abdominal: soft, nontender to palpation, no guarding, no appreciable organomegaly Ext: ROM intact. No gross muscle atrophy, no edema, no contractures Neuro: Speech slurred and garbled at times with slight right-sided facial droop, 4 out of 5 strength in right lower extremity and 5 out of 5 to left lower extremity and 5 out of 5 strength to right upper and left upper extremities. Decreased sensation reported to right upper and right lower extremity. rossly intact with no noted focal neuro deficits Psych: Alert and oriented to person, place, time, and situation. Appropriate and pleasant affect. 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 -Neurology following -Speech and language pathologist following -PT/OT following -Continue neuro checks -Fall precautions -Provide safe and supportive care and assistance as needed -Continue aspirin, atorvastatin, and warfarin pending further recommendations from neurologist. -Echocardiogram completed pending results -Lipid profile unremarkable with the exception of low HDL of 37.30 -Hemoglobin A1c 5.8% Chronic persistent atrial fibrillation -Continue anticoagulation with Coumadin pending further recommendations from neurology Hypertension -Patient was allowed permissive hypertension 48 hours, initially presented with hypertensive urgency. -Currently vital signs stable and we will continue with daily Norvasc 5 mg each morning. Hyperlipidemia -Lipid profile unremarkable with the exception of low HDL of 37.30 -Continue atorvastatin 40 mg daily CODE STATUS: DO NOT RESUSCITATE/DO NOT INTUBATE DVT prophylaxis: Coumadin Discussed with: patient and RN Anticipated discharge date: likely within the next [address]: home with homecare versus inpatient rehab A total of 39 minutes was spent on the care of this complex patient more than 50% of the time was spent in counseling and care coordination. Objective - Vital Signs Vital signs: Vital Signs Temp 97.4 F L 01/03/22 04:00 Pulse 84 01/03/22 04:00 Resp 16 01/03/22 04:00 BP 187/98 01/03/22 04:00 Pulse Ox 98 01/03/22 04:00 FiO2 Intake & Output 01/02/22 01/03/22 01/03/22 18:59 06:59 18:59 Output Total 100 Balance -100 Output: Urine 100 Other: Voiding Method Bedside Commode Bedside Commode # Voids 1 1 - Labs CBC & Chem 7: 01/03/22 07:15 01/03/22 07:15 Labs: Abnormal Lab Results - Last 24 Hours (Table) 01/02/22 01/02/22 01/02/22 Range/Units 08:04 08:04 08:04 WBC 11.1 H (3.8-10.6) k/uL RDW 15.6 H (11.5-15.5) % Neutrophils # 9.1 H (1.3-7.7) k/uL PT 32.5 H (9.0-12.0) sec INR 3.3 H (<1.2) Carbon Dioxide 21 L (22-30) mmol/L Creatinine 1.50 H (0.66-1.25) mg/dL Glucose 110 H (74-99) mg/dL HDL Cholesterol 37.30 L (40.00-60.00) mg/dL 01/03/22 01/03/22 Range/Units 07:15 07:15 WBC 11.1 H (3.8-10.6) k/uL RDW (11.5-15.5) % Neutrophils # 9.2 H (1.3-7.7) k/uL PT 35.1 H (9.0-12.0) sec INR 3.5 H (<1.2) Carbon Dioxide (22-30) mmol/L Creatinine (0.66-1.25) mg/dL Glucose (74-99) mg/dL HDL Cholesterol (40.00-60.00) mg/dL
--- NOTE | 2022-01-03 11:06 | MR ---
EXAMINATION TYPE: MR brain wo con DATE OF EXAM: 01/03/2022 COMPARISON: 12/25/2015 HISTORY: Stroke TECHNIQUE: T1-weighted sagittal, T2, FLAIR, and diffusion axial, and T2 coronal coronal views of the brain are submitted. FINDINGS: There is focal area of acute to subacute ischemia involving the left parietal white matter measuring 1 cm in greatest dimension. Report called to the patient's nurse. Also suspect a small focal 2 [address]u te infarct left cerebellum.. Mild generalized degenerative change with focal and diffuse areas of abnormal signal in the white mat ter which are nonspecific but most typical of remote microvascular ischemia. Tiny foci of abnormal si gnal on the paracentral left and within the left cerebellum are too small to characterize but most li nga in the basis of tiny infarct.. Craniocervical junction maintained. Sella turcica has a normal appearance. No cerebellopontine angle mass. IMPRESSION: 1. Acute to subacute infarct measuring 1 cm left parietal periventricular white matter. 2. Punctate 1 to 2 mm acute to subacute infarct left cerebellar hemisphere. Report called to patient' s nurse 11:02 AM 01/03/2022.
--- NOTE | 2022-01-03 13:21 | CA ---
Transthoracic Echo Report Name: Oksar Stinson Age: 86 Gender: M : 1935 Exam Date: 01/03/2022 09:55 Exam Location: [facility] Ht (in): 64 Wt (lb): 150 Ordering Physician: Jame Lyon MD Attending/Referring Phys: [id number], Sonali Sba Business Development Officer Angeles Chiang RDCS Procedure CPT: Indications: chf Cardiac Hx: Afib, NH , 3 stents, Htn, Hyperlipidemia Technical Quality: Good Contrast 1: Total Dose (mL): Contrast 2: Total Dose (mL): MEASUREMENTS (Male / Female) Normal Values 2D ECHO LVOT Diameter 1.2 cm M-MODE Aortic Root Diameter MM 3.8 cm LA Systolic Diameter MM 3.6 cm LA Ao Ratio MM 1.0 AV Cusp Separation MM 1.1 cm DOPPLER AV Peak Velocity 323.5 cm/s AV Peak Gradient 41.9 mmHg AV Mean Velocity 179.0 cm/s AV Mean Gradient 16.2 mmHg AV Velocity Time Integral 34.2 cm LVOT Peak Velocity 88.1 cm/s LVOT Peak Gradient 3.1 mmHg AV Area Cont Eq pk 0.3 cm??? MR Peak Velocity 148.2 cm/s MR Peak Gradient 8.8 mmHg TR Peak Velocity 134.1 cm/s TR Peak Gradient 7.2 mmHg Right Ventricular Systolic Press 11.9 mmHg FINDINGS Left Ventricle Afib, left ventricular ejection fraction is estimated at 55-60 %. Left ventricular cavity size normal. Left ventricular wall thickness normal. Right Ventricle The right ventricle is normal in size and function. Right Atrium The right atrium is normal in size. Left Atrium The left atrium is normal in size. Mitral Valve Structurally normal mitral valve without significant stenosis or prolapse. There is mild mitral regurgitation. Aortic Valve There is no aortic regurgitation. Moderate aortic stenosis with a peak gradient of 42 mmHg and a mean gradient of 27 mmHg. Diffuse thickening of the aortic valve cusps with reduced excursion. Tricuspid Valve Structurally normal tricuspid valve without significant stenosis. Pulmonary artery systolic pressure is normal. Mild tricuspid regurgitation. Pulmonic Valve Structurally normal pulmonic valve without significant stenosis. There is no pulmonic regurgitation. Pericardium Normal pericardium without effusion. Aorta Normal aortic root dimension. CONCLUSIONS Normal left ventricular ejection fraction 55-60% Mild mitral regurgitation Moderate aortic stenosis with mean gradient 27 mmHg Mild tricuspid regurgitation No pericardial effusion Previewed by: Dr. Raghavendra Elmore DO (Electronically Signed) Final Date: 03 January 2022 13:20
[2022-01-03] MEDS ORDERED: WARFARIN 0.5 MG TAB PO ONE (18:00)
--- NOTE | 2022-01-03 19:07 | XR ---
EXAMINATION TYPE: XR ribs RT w pa chest xray DATE OF EXAM: 01/03/2022 COMPARISON: Chest x-ray 12/24/2015 HISTORY: Fall. Right-sided rib pain TECHNIQUE: 6 views FINDINGS: Heart size is normal. Lungs are clear of consolidation. There is pleural thickening and adrian cification at the lung apices. There is apparent calcified pleural plaque also in the left lower lobe . No heart failure. No pneumothorax. No pleural effusion. The right ribs appear intact. No rib fractu res seen. IMPRESSION: There is pleural and pulmonary scarring at the lung apices similar to the old exam. Left lower lobe calcified pleural plaque. No evidence for acute lung disease. No rib fracture seen
--- NOTE | 2022-01-04 05:23 | P.CONS ---
History of Present Illness - Chief Complaint Gait disturbance, right hemiparesthesias - History of Present Illness I had the opportunity to see patient for inpatient rehab consultation with regard to gait disturbance. Patient admitted to [facility] January 01, Dr. Cristhian salmeron, for acute onset right-sided weakness. Seen by neurology, Dr. has son. Diagnostic tests head CT with atrophy and ischemic and chronic change. Chest x- ray consistent with CHF. Angiogram CT demonstrates stenosis internal carotid, 30% and right and 50% left. Carotid Doppler done. Brain MRI with left pontine infarct and left cerebellar infarct. Speech therapy reports slurring of speech and swallow within functional limits. PT and OT prescribed. Patient to fatigue for OT yesterday. Previous functional history as elicited from patient: 86-year-old right-handed white male who is lives in one floor home alone. Retired 21 years. Describes independent with own cooking, laundry, driving, standing shower and gait without device. PCP Dr. Lyn. Currently smokes 5-6 cigarettes per day. Review of Systems Review of systems: ENT: Denies sneezes or discharge. Eyes: Denies discharge or photophobia. Cardiac: Denies chest pain or palpitation. Pulmonary: Denies cough or shortness of breath. Gastrointestinal: Denies nausea, emesis, constipation, diarrhea. Genitourinary: Denies discharge or frequency. Musculoskeletal: Denies muscle or bone aches. Neurologic: Disorientation and mild right-sided weakness. Endocrine: Denies shakes or sweats. Oncology: Denies cancers. Dermatologic: Denies rash, itching, pruritus. ALLERGY/immunology: Denies sneezes, rashes. Past Medical History Past Medical History: Atrial Fibrillation, CVA/TIA, Eye Disorder, Hearing Disorder / Deafness, Hyperlipidemia, Hypertension Additional Past Medical History / Comment(s): CVA 2010; POSS TIA 12/24/15. PAD, LOWER EXTREMITIES. HX CATARACTS. RT URETERAL CALCULUS CURRENTLY, C/O PAIN AND BLOOD IN URINE. History of Any Multi-Drug Resistant Organisms: None Reported Past Surgical History: Cholecystectomy, Hernia Repair Additional Past Surgical History / Comment(s): EXC CATARACTS W/ IMPLANTS. NOVEMBER 2013 ABD AORTOGRAM, 11/2015. RT ESWL 01/15/16. Past Anesthesia/Blood Transfusion Reactions: No Reported Reaction Past Psychological History: No Psychological Hx Reported Past Alcohol Use History: Occasional Past Drug Use History: None Reported - Past Family History Mother Family Medical History: Diabetes Mellitus Medications and Allergies Home Medications Medication Instructions Recorded Confirmed Type Simvastatin [Zocor] 40 mg PO DAILY 11/14/13 01/01/22 History Aspirin 81 mg PO DAILY #30 chew 12/27/15 01/01/22 Rx Warfarin [Coumadin] 2.5 mg PO HS 01/01/22 01/01/22 History lisinopriL [Zestril] 5 mg PO DAILY 01/01/22 01/01/22 History Allergies Allergy/AdvReac Type Severity Reaction Status Date / Time No Known Allergies Allergy Verified 01/01/22 17:05 Physical Exam Vitals: Vital Signs Temp Pulse Resp BP BP Pulse Ox 01/04/22 03:51 98.3 F 83 18 106/62 95 01/04/22 01:53 97 18 01/03/22 23:36 98.0 F 97 18 158/91 179/75 99 01/03/22 20:00 98.2 F 81 18 134/68 96 01/03/22 16:00 97 F L 77 18 134/67 99 01/03/22 14:00 16 01/03/22 11:56 98.0 F 95 16 121/72 98 01/03/22 09:33 97.8 F 112 H 18 124/76 96 Intake and Output 01/03/22 01/03/22 01/04/22 14:59 22:59 06:59 Intake Total 120 10 Balance 120 10 Intake: IV 10 0.9 10 Oral 120 Other: Voiding Method Bedside Commode Toilet Toilet Bedside Commode Bedside Commode # Voids 1 # Bowel Movements 1 Skin: Atrophic, intact. General: Medium build and comfortable appearance. Head: Normocephalic, atraumatic. Eyes: Symmetric. Pupils equal round. Ears: Symmetric. Hearing within normal limits. Mouth: Clear. Neck: Supple. Carotid without bruit. Cardiac: Regular rate and rhythm. Lungs: Clear anteriorly and posteriorly. Abdomen: Soft active nontender. Extremities: Normal tone. Neurological: Mental status: Alert, cooperative, pleasant. Cranial nerves: Symmetric facial tone and trapezius. Motor: Normal strength and isolation all 4 limbs except mild weakness right arm and leg, 4/5 hand and ankle. Sensation: Intact throughout but perhaps mildly diminished right-sided. DTRs: Symmetric and equal throughout. Mobility: Did not attempt to sit or stand this early a.m. Results CBC & Chem 7: 01/03/22 07:15 01/03/22 07:15 Labs: Abnormal Lab Results - Last 24 Hours (Table) 01/03/22 01/03/22 01/03/22 Range/Units 07:15 07:15 07:15 WBC 11.1 H (3.8-10.6) k/uL Neutrophils # 9.2 H (1.3-7.7) k/uL PT 35.1 H (9.0-12.0) sec INR 3.5 H (<1.2) Chloride 109 H (98-107) mmol/L Carbon Dioxide 19 L (22-30) mmol/L BUN 26 H (9-20) mg/dL Creatinine 1.40 H (0.66-1.25) mg/dL Glucose 101 H (74-99) mg/dL Assessment and Plan (1) Cerebrovascular accident (CVA) Current Visit: Yes Status: Acute Code(s): I63.9 - CEREBRAL INFARCTION, UNSPECIFIED SNOMED Code(s): 339341148 (2) Right leg weakness Current Visit: Yes Status: Acute Code(s): R29.898 - OTH SYMPTOMS AND SIGNS INVOLVING THE MUSCULOSKELETAL SYSTEM SNOMED Code(s): 877165635 (3) Expressive aphasia Current Visit: No Status: Acute Code(s): R47.01 - APHASIA SNOMED Code(s): 339783631 (4) Paroxysmal a-fib Current Visit: No Status: Acute Code(s): I48.0 - PAROXYSMAL ATRIAL FIBRILLATION SNOMED Code(s): 471133356 Plan: Comments and plan: At this time safety concerns are noted. Have discussed possible inpatient rehab with patient. His preference would be to return home and received therapies there. Doesn't report that daughter lives next door but will be celebrating her anniversary this weekend. At this time would require PT and OT evaluation in anticipation of need of insurance authorization for IPR. Have asked patient to consider.
--- NOTE | 2022-01-04 07:10 | US ---
EXAMINATION TYPE: US arterial LE multi level DATE OF EXAM: 01/03/2022 1:32 PM CLINICAL HISTORY: Bilateral leg pain. bilateral leg pain, worse on the right. *left brachial pressure deferred due to IV. *limitations, patient unable to hold still. *inaudible right PT signal . Histor y of hypertension and hyperlipidemia. Doppler Waveforms: Right: Monophasic Left: Monophasic Pulse Volume Recording: Flattened on the right. Pressure Gradients: Ankle-Brachial Indices: Right: 0.51 Left: 0.94 Toe Brachial Indices: Right: 0.38 Left: 0.43 IMPRESSION: Suboptimal study. Lack of phasicity is nonspecific. Diminished TBI values bilaterally. D iminished right sided FRANCHESCA. At least moderate peripheral arterial disease in the right lower extremity and mild peripheral arterial disease in the left foot is felt present. Further workup and follow-up advised.
[2022-01-04 08:02] LABS: INR 2.9 (<1.2); Prothrombin Time 29.3 sec (9.0-12.0)
[2022-01-04] MEDS: amLODIPine 5 MG TAB PO SCH (08:11)
[2022-01-04] MEDS: ATORVASTATIN 40 MG TAB PO SCH (08:11)
[2022-01-04] MEDS: ASPIRIN 81 MG PO SCH (08:11)
[2022-01-04 08:25] LABS: Albumin 4.5 g/dL (3.5-5.0); Calcium 9.2 mg/dL (8.4-10.2); Magnesium 1.9 mg/dL (1.6-2.3); Potassium 4.2 mmol/L (3.5-5.1); Total Bilirubin 1.3 mg/dL (0.2-1.3); Total Protein 8.1 g/dL (6.3-8.2)
[2022-01-04 08:26] LABS: HCT 48.4 % (39.0-53.0); HGB 15.4 gm/dL (13.0-17.5); MCH 29.4 pg (25.0-35.0); MCHC 31.9 g/dL (31.0-37.0); Mean Platelet Volume 8.5; Platelet Count 284 k/uL (150-450); RBC 5.26 m/uL (4.30-5.90); RDW 15.4 % (11.5-15.5); WBC 13.3 k/uL (3.8-10.6)
--- NOTE | 2022-01-04 08:32 | P.PN ---
Subjective Progress Note Date: 01/03/22 Patient was seen for a follow-up. Patient's speech is better. Still somewhat slurred. Denies any new neurological symptoms. No headache, no dizziness. Patient complains of significant pain in the lower extremities. Objective - Vital Signs Vital signs: Vital Signs Temp 97.8 F 01/03/22 09:33 Pulse 112 H 01/03/22 09:33 Resp 18 01/03/22 09:33 BP 124/76 01/03/22 09:33 Pulse Ox 96 01/03/22 09:33 FiO2 Intake & Output 01/02/22 01/03/22 01/03/22 18:59 06:59 18:59 Output Total 100 Balance -100 Output: Urine 100 Other: Voiding Method Bedside Commode Bedside Commode Bedside Commode # Voids 1 1 1 - Exam Patient is an elderly male, in no acute distress. Patient is alert awake oriented to time place and person. Speech is mildly dysarthric, but better than yesterday and language functions are normal. Patient can name and repeat very well. Attention, concentration and fund of knowledge is adequate. On cranial nerve examination, pupils are equal, round and reacting to light, visual iverson are full on confrontation, with no neglect on double simultaneous depression. Extraocular muscles are intact with no nystagmus. Face has right facial droop, tongue protrudes to the midline. Palatal elevation and sensation normal, hearing is moderately decreased, uses hearing aids and shoulder shrug normal, facial sensation normal. On muscle strength testing, there is no pronator drift and the strength is normal in arms and legs distally and proximally. Deep tendon reflexes are symmetric and trace in the upper limbs, 1+ in the lower limbs and plantars are downgoing bilaterally. Sensory to touch is decreased in the right leg as compared to the left. Sensations equal in the arms and facial region. Cerebellar function showed no obvious ataxia for [id number] testing, although patient was slightly slow on the right. No ataxia for [id number] testing on either side. Tone and bulk of muscles normal. Gait deferred.. On general examination, there is no carotid bruit or murmur, S1-S2 audible. Chest is clear on consultation. Abdomen is soft nontender. No organomegaly, bowel sounds present. Peripheral pulses are not clearly present. Lower extremities are warm. No edema. - Labs CBC & Chem 7: 01/03/22 07:15 01/03/22 07:15 Labs: Abnormal Lab Results - Last 24 Hours (Table) 01/02/22 01/03/22 01/03/22 Range/Units 08:04 07:15 07:15 WBC 11.1 H (3.8-10.6) k/uL Neutrophils # 9.2 H (1.3-7.7) k/uL PT 35.1 H (9.0-12.0) sec INR 3.5 H (<1.2) Chloride (98-107) mmol/L Carbon Dioxide (22-30) mmol/L BUN (9-20) mg/dL Creatinine (0.66-1.25) mg/dL Glucose (74-99) mg/dL HDL Cholesterol 37.30 L (40.00-60.00) mg/dL 01/03/22 Range/Units 07:15 WBC (3.8-10.6) k/uL Neutrophils # (1.3-7.7) k/uL PT (9.0-12.0) sec INR (<1.2) Chloride 109 H (98-107) mmol/L Carbon Dioxide 19 L (22-30) mmol/L BUN 26 H (9-20) mg/dL Creatinine 1.40 H (0.66-1.25) mg/dL Glucose 101 H (74-99) mg/dL HDL Cholesterol (40.00-60.00) mg/dL Assessment and Plan Assessment: * Acute ischemic stroke, manifesting with mild right-sided numbness, slurring. Patient's NIH stroke scale is 3, related to mild slurring, right facial droop and right leg numbness. Patient was not a candidate for TPA as he was on Coumadin with therapeutic INR. * Atrial fibrillation on Coumadin * Hypertension * Hyperlipidemia * Hard of hearing Plan: * MRI brain revealed acute to subacute infarct measuring 1 cm left parietal periventricular white matter. Punctate one to 2 mm acute or subacute infarct left cerebellar hemisphere. I reviewed MRI, agree with the findings. * CTA revealed about 50% stenosis of the left ICA and 30% stenosis of the right ICA. * Carotid Doppler revealed close to 50% stenosis in both ICA. There is some progression of the plaque formation compared to old exam. Antegrade flow in both vertebral arteries. * Patient has moderate ICA stenosis. Recommend follow-up carotid Doppler in 6 months. * Although patient's stroke involving the left parietal region could be related to ICA stenosis, however the left cerebellar ischemic stroke is not related to carotid stenosis. Therefore cardioembolic sources likely possibility. * Patient complaining of significant lower extremity pain, right more than left. We will check arterial Doppler. * 2-D echo revealed normal left ventricular ejection fraction 55-60%. Mild MR. Moderate aortic stenosis, mild TR. Left atrial size is normal. * Lipid panel with cholesterol 167, LDL 101, HDL 37 and triglycerides 139. Continue Lipitor 40 mg daily. (At home on Zocor 40 mg daily). * Hemoglobin A1c 5.8 * Continue Coumadin. INR is 3.5. Target INR 2-3. Will switch from aspirin to Plavix. Continue Coumadin. * Consultation with physical medicine and rehab.
[2022-01-04] MEDS: CLOPIDOGREL 75 MG TAB PO SCH (08:34)
--- NOTE | 2022-01-04 11:31 | CDI ---
Documentation Clarification Form Date: 01/04/2022 11:16:00 AM From: Malena Alves CCS, CCDS Admit Date: 01/01/2022 05:12:00 PM Patient Name: Oskar Stinson Visit Number: [id number] Discharge Date: ATTENTION: The Clinical Documentation Specialists (CDI) and [facility] Coding Staff appreciate your assistance in clarifying documentation. Please respond to the clarification below the line at the bottom and electronically sign. The CDI & [facility] Coding staff will review the response and follow-up if needed. Please note: Queries are made part of the Legal Health Record. If you have any questions, please contact the author of this message via ITS. Dr. Tara Hill: Acute Congestive Heart Failure, unknown type is documented in the 01/01 H/P and in the 01/03 Attending Progress Note. An ECHO was done on 01/03: Atrial Fibrillation, left ventricular EF is estimated at 55-60%. Mild Mitral regurgitation. Moderate aortic stenosis. Mild Tricuspid regurgitation. Additional information regarding the Type & Acuity of CHF is requested. History/Risk Factors per the 01/01 H/P: Atrial Fibrillation on Coumadin, Hypertension, Hyperlipidemia, CVA 2010, possible TIA 12/2015. Clinical Indicators: Presented to the ED on 01/01 with stroke like symptoms, weakness to this right lower extremity and right arm, right facial droop, mild SOB. Admit with CVA, Right leg weakness, Facial droop. 01/01 VS: T 98.2, P 52, 59, 68; R 20, 16; BP 162/113, 204/157, 208/98; PO 98 RA, BMI: 25.7 01/01 LAB: PT 27.0, INR 2.7, APTT 34.3; Creatinine 1.26 01/01 RAD: CT Brain: Cerebral atrophy & chronic small vessel ischemia. No acute intracranial abnormality. 01/01 CXR: There is some CHF, appears new, Small pleural effusions. 01/01 CT Head/Neck: Stenosis of the left & right internal carotid artery. 01/03 CXR/Right Rib XRay: No heart failure. 01/03 ECHO as above. Treatment 01/01: Neuro Assessment, Swallow Screen, O2, po Aspirin 325 mg x1, po Lipitor 40 mg Daily, IV Lasix 20 mg x1, IV Apresoline 10 mg q2H, po Coumadin 2.5 mg x1. In your professional opinion, can you please clarify the Type & Acuity of CHF if known? [ ] Acute Systolic Heart Failure [ ] Acute Diastolic Heart Failure [ ] Acute Systolic & Diastolic Heart Failure [ ] Heart Failure is ruled out [ ] Other, please specify [ ] Unable to determine (Template Last Revised: June 2020) MTDD
--- NOTE | 2022-01-04 14:02 | P.PN ---
Subjective Progress Note Date: 01/04/22 Hospital course: Patient is a very pleasant 86-year-old male with a past medical history of atrial fibrillation on anticoagulation with Coumadin, hypertension, hyperlipidemia, and history of a CVA in 2010 and TIA in 2016. Patient presented to the emergency department on 01/01/22 with a chief complaint of right-sided weakness, right-sided facial droop, and slurred speech. Patient underwent full evaluation in the emergency department. CBC unremarkable. CMP revealing an acute kidney injury with BUN is 14, creatinine 1.26, GFR 52. INR was therapeutic at 2.7. CT head was completed showing cerebral atrophy and chronic small vessel ischemia negative for acute intercranial process. CTA head negative for significant intracranial angiographic abnormality. CT neck revealing stenosis at the origins of both internal carotid arteries with 50% stenosis at the origin of the left internal carotid artery and 30% stenosis at the origin of the right internal carotid artery. EKG revealed atrial fibrillation with a slow ventricular response at 58 bpm. Patient admitted under our services with consultation to neurology. Hemoglobin A1c 5.8%. Lipid profile unremarkable with the exception of low HDL of 37.30. Carotid Dopplers completed revealing antegrade flow in the vertebral arteries with close to 50% stenosis in both internal carotid arteries with reports of some progression of the plaque formation compared to previous examination completed on 12/24/2015. Patient underwent MRI which revealed acute to subacute infarct measuring 1 cm in the left parietal periventricular white matter with a punctate 1-2 mm acute distress of acute infarct in the left cerebral hemisphere. Echocardiogram revealing normal EF of 55-60% with mild mitral and tricuspid regurgitation as well as moderate aortic stenosis. Was notified on the evening of 01/03/22 that patient's right lower extremity weakness/decreased sensation resulted in a fall when he stood up in the shower. X-ray ribs was negative for rib fracture. Physical exam: Patient seen and fully evaluated at bedside this morning. He was resting comfortably in bed. Patient reports improvement in pain to right ribs in which he reported having status post fall yesterday evening. X-ray ribs was negative for rib fracture. Patient does have worsened right-sided facial droop and slurred speech this morning. Continues to have 5 out of 5 strength equally to bilateral upper extremities with 4 out of 5 strength to right lower extremity and 5 out of 5 strength to left lower extremity. Patient continues to deny having any headache, lightheadedness, dizziness, chest pain, palpitations, or shortness of breath. Patient did meet with Dr. Keenan regarding inpatient rehab and is agreeable as recommended at this time. Arrangements to be made by medical case worker for insurance authorization. Morning labs reviewed. INR therapeutic at 2.9. Renal function slightly elevated with you and 34, creatinine 1.61, and GFR 39. Patient started on gentle IV fluid hydration with 0.9% normal saline and we will reassess labs tomorrow morning. Vital signs reviewed and stable. General: Nontoxic, no distress and appears stated age. Derm: Skin warm and dry, normal coloration for ethnicity. Head: Atraumatic, normocephalic and symmetric. Eyes: EOMs intact, no lid lag, and anicteric sclera Mouth: no lip lesions, mucus membranes moist Cardiovascular: regular rate and rhythm with normal S1S2, no murmur, positive posterior tibial pulses bilaterally, and cap refill < 2 seconds. Lungs: Respirations even, regular, and unlabored on room air. Lungs CTA bilaterally, no rhonchi, no rales, no wheezing, and no accessory muscle usage. Abdominal: soft, nontender to palpation, no guarding, no appreciable organomegaly Ext: ROM intact. No gross muscle atrophy, no edema, no contractures Neuro: Speech slurred and garbled at times with moderate right-sided facial droop, 4 out of 5 strength in right lower extremity and 5 out of 5 to left lower extremity and 5 out of 5 strength to right upper and left upper extremities. Decreased sensation reported to right upper and right lower extremity. rossly intact with no noted focal neuro deficits Psych: Alert and oriented to person, place, time, and situation. Appropriate and pleasant affect. 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 -Neurology following -Speech and language pathologist following -PT/OT following -Continue neuro checks -Fall precautions -Provide safe and supportive care and assistance as needed -Continue aspirin, atorvastatin, and warfarin pending further recommendations from neurologist. -Echocardiogram revealing normal EF of 55-60% with mild mitral and tricuspid regurgitation as well as moderate aortic stenosis. -Lipid profile unremarkable with the exception of low HDL of 37.30 -Hemoglobin A1c 5.8% Fall resulting in right rib pain -Patient had an unwitnessed fall secondary to reported right lower extremity weakness/decreased sensation. Patient reported he attempted to stand up by himself in the shower and fell striking right rib region on the shower chair. Patient denied any other injuries. -X-ray right ribs negative for fracture. -No bruising or obvious injuries noted. Chronic persistent atrial fibrillation -Continue anticoagulation with Coumadin pending further recommendations from neurology Hypertension -Patient was allowed permissive hypertension 48 hours, initially presented with hypertensive urgency. -Currently vital signs stable and we will continue with daily Norvasc 5 mg each morning. Hyperlipidemia -Lipid profile unremarkable with the exception of low HDL of 37.30 -Continue atorvastatin 40 mg daily CODE STATUS: DO NOT RESUSCITATE/DO NOT INTUBATE DVT prophylaxis: Coumadin Discussed with: patient and RN Anticipated discharge date: likely within the next [address]: home with homecare versus inpatient rehab A total of 39 minutes was spent on the care of this complex patient more than 50% of the time was spent in counseling and care coordination. Objective - Vital Signs Vital signs: Vital Signs Temp 97.6 F 01/04/22 08:10 Pulse 85 01/04/22 08:10 Resp 14 01/04/22 08:10 BP 114/71 01/04/22 08:10 Pulse Ox 99 01/04/22 08:10 FiO2 Intake & Output 01/03/22 01/04/22 01/04/22 18:59 06:59 18:59 Intake Total 120 10 Balance 120 10 Intake: IV 10 0.9 10 Oral 120 Other: Voiding Method Bedside Commode Toilet Bedside Commode # Voids 1 1 # Bowel Movements 1 - Labs CBC & Chem 7: 01/04/22 07:28 01/04/22 07:28 Labs: Abnormal Lab Results - Last 24 Hours (Table) 01/03/22 01/04/22 Range/Units 07:15 07:28 PT 29.3 H (9.0-12.0) sec INR 2.9 H (<1.2) Chloride 109 H (98-107) mmol/L Carbon Dioxide 19 L (22-30) mmol/L BUN 26 H (9-20) mg/dL Creatinine 1.40 H (0.66-1.25) mg/dL Glucose 101 H (74-99) mg/dL
[2022-01-04] MEDS: SODIUM CHLORIDE 0.9% 1,000 ML IV SCH (15:12)
[2022-01-04] MEDS ORDERED: WARFARIN 2.5 MG TAB PO ONE (18:00)
[2022-01-04] MEDS: ACETAMINOPHEN TAB 325 MG TAB PO PRN (20:41)
--- NOTE | 2022-01-04 22:05 | P.PN ---
Subjective Progress Note Date: 01/04/22 Patient was seen for a follow-up. Patient's speech is better. Still somewhat slurred. Denies any new neurological symptoms. No headache, no dizziness. Patient complains of significant pain in the lower extremities. Patient's family members were also present today. Objective - Vital Signs Vital signs: Vital Signs Temp 97.5 F L 01/04/22 11:28 Pulse 88 01/04/22 15:16 Resp 17 01/04/22 11:28 BP 142/73 01/04/22 15:16 Pulse Ox 97 01/04/22 15:16 FiO2 Intake & Output 01/03/22 01/04/22 01/04/22 18:59 06:59 18:59 Intake Total 120 10 Balance 120 10 Intake: IV 10 0.9 10 Oral 120 Other: Voiding Method Bedside Commode Toilet Bedside Commode # Voids 1 1 1 # Bowel Movements 1 - Exam Patient is an elderly male, in no acute distress. Patient is alert awake oriented to time place and person. Speech is mildly dysarthric, but better than yesterday and language functions are normal. Patient can name and repeat very well. Attention, concentration and fund of knowledge is adequate. On cranial nerve examination, pupils are equal, round and reacting to light, visual iverson are full on confrontation, with no neglect on double simultaneous depression. Extraocular muscles are intact with no nystagmus. Face has right facial droop, tongue protrudes to the midline. Palatal elevation and sensation normal, hearing is moderately decreased, uses hearing aids and shoulder shrug normal, facial sensation normal. On muscle strength testing, there is no pronator drift and the strength is normal in arms and legs distally and proximally. Deep tendon reflexes are symmetric and trace in the upper limbs, 1+ in the lower limbs and plantars are downgoing bilaterally. Sensory to touch is decreased in the right leg as compared to the left. Sensations equal in the arms and facial region. Cerebellar function showed no obvious ataxia for [id number] testing, although patient was slightly slow on the right. No ataxia for [id number]-[id number] testing on either side. Tone and bulk of muscles normal. Gait deferred.. On general examination, there is no carotid bruit or murmur, S1-S2 audible. Chest is clear on consultation. Abdomen is soft nontender. No organomegaly, bowel sounds present. Peripheral pulses are not clearly present. Lower extremities are warm. No edema. - Labs CBC & Chem 7: 01/04/22 07:28 01/04/22 07:28 Labs: Abnormal Lab Results - Last 24 Hours (Table) 01/04/22 01/04/22 01/04/22 Range/Units 07:28 07:28 07:28 WBC 13.3 H (3.8-10.6) k/uL PT 29.3 H (9.0-12.0) sec INR 2.9 H (<1.2) BUN 34 H (9-20) mg/dL Creatinine 1.61 H (0.66-1.25) mg/dL Glucose 121 H (74-99) mg/dL Alkaline Phosphatase 128 H (38-126) U/L Assessment and Plan Assessment: * Acute ischemic stroke, manifesting with mild right-sided numbness, slurring. Patient's NIH stroke scale is 3, related to mild slurring, right facial droop and right leg numbness. Patient was not a candidate for TPA as he was on Coumadin with therapeutic INR. * Atrial fibrillation on Coumadin * Hypertension * Hyperlipidemia * Hard of hearing Plan: * MRI brain revealed acute to subacute infarct measuring 1 cm left parietal periventricular white matter. Punctate one to 2 mm acute or subacute infarct left cerebellar hemisphere. I reviewed MRI, agree with the findings. * CTA revealed about 50% stenosis of the left ICA and 30% stenosis of the right ICA. * Carotid Doppler revealed close to 50% stenosis in both ICA. There is some progression of the plaque formation compared to old exam. Antegrade flow in both vertebral arteries. Consult vascular surgery. * Although patient's stroke involving the left parietal region could be related to ICA stenosis, however the left cerebellar ischemic stroke is not related to carotid stenosis. Therefore cardioembolic sources likely possibility. * Patient complaining of significant lower extremity pain, right more than left. Arterial Doppler revealed suboptimal study. Lack of phasicity is nonspecific. Diminished TBI values bilaterally. Diminished right-sided FRANCHESCA. At least moderate peripheral arterial disease in the right lower extremity and mild peripheral arterial disease in the left foot is felt present. Further workup and follow-up advised. Consult vascular surgery. * 2-D echo revealed normal left ventricular ejection fraction 55-60%. Mild MR. Moderate aortic stenosis, mild TR. Left atrial size is normal. * Lipid panel with cholesterol 167, LDL 101, HDL 37 and triglycerides 139. Continue Lipitor 40 mg daily. (At home on Zocor 40 mg daily). * Hemoglobin A1c 5.8 * Continue Coumadin. INR is 2.9. Target INR 2-3. Will switch from aspirin to Plavix. Continue Coumadin. * Consultation with physical medicine and rehab.
--- NOTE | 2022-01-05 06:27 | P.GSCN ---
History of Present Illness Consult date: 01/04/22 Reason for Consult: lower extremity pain History of present illness: 86 year old male presented to the ER secondary to stroke like symptoms and was evaluated with CT brain, CTA neck demonstrating no significant carotid stenosis. During his stay he states developing lower extremity pain and had lower extremity arterial doppler obtained which demonstrated diminished blood flow to the right lower extremity. Currently he states his lower extremity discomfort has resolved. He does admit to having claudication type symptoms prior to his hospitalization. He states having pain in his right calf after walking for an extended period of time. He denies any fevers, chills, chest pain or shortness of breath. Review of Systems All systems: negative (what is mentioned in the PMH or HPI) Past Medical History Past Medical History: Atrial Fibrillation, CVA/TIA, Eye Disorder, Hearing Disorder / Deafness, Hyperlipidemia, Hypertension Additional Past Medical History / Comment(s): CVA 2010; POSS TIA 12/24/15. PAD, LOWER EXTREMITIES. HX CATARACTS. RT URETERAL CALCULUS CURRENTLY, C/O PAIN AND BLOOD IN URINE. History of Any Multi-Drug Resistant Organisms: None Reported Past Surgical History: Cholecystectomy, Hernia Repair Additional Past Surgical History / Comment(s): EXC CATARACTS W/ IMPLANTS. NOVEMBER 2013 ABD AORTOGRAM, 11/2015. RT ESWL 01/15/16. Past Anesthesia/Blood Transfusion Reactions: No Reported Reaction Past Psychological History: No Psychological Hx Reported Past Alcohol Use History: Occasional Past Drug Use History: None Reported - Past Family History Mother Family Medical History: Diabetes Mellitus Medications and Allergies Home Medications Medication Instructions Recorded Confirmed Type Simvastatin [Zocor] 40 mg PO DAILY 11/14/13 01/01/22 History Aspirin 81 mg PO DAILY #30 chew 12/27/15 01/01/22 Rx Warfarin [Coumadin] 2.5 mg PO HS 01/01/22 01/01/22 History lisinopriL [Zestril] 5 mg PO DAILY 01/01/22 01/01/22 History Allergies Allergy/AdvReac Type Severity Reaction Status Date / Time No Known Allergies Allergy Verified 01/01/22 17:05 Surgical - Exam Vital Signs Temp Pulse Resp BP Pulse Ox 98.2 F 52 L 20 162/113 98 01/01/22 15:18 01/01/22 15:18 01/01/22 15:18 01/01/22 15:18 01/01/22 15:18 diminished dp and pt pulses bilaterally good capillary refill no wounds, minimal lower extremity edema - General well developed, well nourished, no distress - Eyes PERRL - ENT normal pinna, normal nares - Neck no masses, no bruits, trachea midline - Respiratory normal expansion, normal respiratory effort - Cardiovascular Rhythm: regularly irregular - Abdomen Abdomen: soft, non tender - Integumentary no rash, no growths - Neurologic right sided facial droop Slurred speech normal coordination, normal sensation - Psychiatric oriented to time, oriented to person, oriented to place, no speech is normal Results - Labs 01/04/22 07:28 01/04/22 07:28 Abnormal Lab Results - Last 24 Hours (Table) 01/04/22 01/04/22 01/04/22 Range/Units 07:28 07:28 07:28 WBC 13.3 H (3.8-10.6) k/uL PT 29.3 H (9.0-12.0) sec INR 2.9 H (<1.2) BUN 34 H (9-20) mg/dL Creatinine 1.61 H (0.66-1.25) mg/dL Glucose 121 H (74-99) mg/dL Alkaline Phosphatase 128 H (38-126) U/L Diabetes panel 01/04/22 Range/Units 07:28 Sodium 142 (137-145) mmol/L Potassium 4.2 (3.5-5.1) mmol/L Chloride 104 (98-107) mmol/L Carbon Dioxide 24 (22-30) mmol/L BUN 34 H (9-20) mg/dL Creatinine 1.61 H (0.66-1.25) mg/dL Glucose 121 H (74-99) mg/dL Calcium 9.2 (8.4-10.2) mg/dL AST 56 (17-59) U/L ALT 25 (4-49) U/L Alkaline Phosphatase 128 H (38-126) U/L Total Protein 8.1 (6.3-8.2) g/dL Albumin 4.5 (3.5-5.0) g/dL Calcium panel 01/04/22 Range/Units 07:28 Calcium 9.2 (8.4-10.2) mg/dL Albumin 4.5 (3.5-5.0) g/dL Pituitary panel 01/04/22 Range/Units 07:28 Sodium 142 (137-145) mmol/L Potassium 4.2 (3.5-5.1) mmol/L Chloride 104 (98-107) mmol/L Carbon Dioxide 24 (22-30) mmol/L BUN 34 H (9-20) mg/dL Creatinine 1.61 H (0.66-1.25) mg/dL Glucose 121 H (74-99) mg/dL Calcium 9.2 (8.4-10.2) mg/dL Adrenal panel 01/04/22 Range/Units 07:28 Sodium 142 (137-145) mmol/L Potassium 4.2 (3.5-5.1) mmol/L Chloride 104 (98-107) mmol/L Carbon Dioxide 24 (22-30) mmol/L BUN 34 H (9-20) mg/dL Creatinine 1.61 H (0.66-1.25) mg/dL Glucose 121 H (74-99) mg/dL Calcium 9.2 (8.4-10.2) mg/dL Total Bilirubin 1.3 (0.2-1.3) mg/dL AST 56 (17-59) U/L ALT 25 (4-49) U/L Alkaline Phosphatase 128 H (38-126) U/L Total Protein 8.1 (6.3-8.2) g/dL Albumin 4.5 (3.5-5.0) g/dL - Imaging Additional studies: arterial doppler- FRANCHESCA of .51 on the right and .94 on the left Assessment and Plan Assessment: 1. Peripheral vascular disease 2. Claudication 3. CVA with right sided facial droop 4. Bilateral carotid artery stenosis 5. Slurred speech secondary to CVA 6. Afib Plan: Reviewed imaging with patient in full detail. Arterial doppler does demonstrate some moderate disease on the right but currently patient without symptoms. No intervention at this time. Carotid imaging demonstrates 50% stenosis bilaterally which is not severe enough for any intervention. He needs to be monitored as outpatient. Continue current medical treatment. Follow up in the office in 2-4 weeks. Thank you for the consultation.
[2022-01-05] MEDS: SODIUM CHLORIDE 0.9% 1,000 ML IV SCH (06:37)
[2022-01-05 07:40] LABS: HCT 46.5 % (39.0-53.0); HGB 14.5 gm/dL (13.0-17.5); MCH 28.7 pg (25.0-35.0); MCHC 31.2 g/dL (31.0-37.0); Mean Platelet Volume 8.3; Platelet Count 247 k/uL (150-450); RBC 5.06 m/uL (4.30-5.90); RDW 15.3 % (11.5-15.5); WBC 10.1 k/uL (3.8-10.6)
[2022-01-05 07:56] VITALS: BP 152/80; PULSE 79; RESP 17; TEMP 97.8
[2022-01-05 07:58] LABS: INR 2.3 (<1.2); Prothrombin Time 23.2 sec (9.0-12.0)
[2022-01-05 08:05] LABS: Albumin 3.9 g/dL (3.5-5.0); Calcium 8.6 mg/dL (8.4-10.2); Magnesium 1.7 mg/dL (1.6-2.3); Potassium 3.7 mmol/L (3.5-5.1); Total Protein 7.2 g/dL (6.3-8.2)
--- NOTE | 2022-01-05 09:52 | P.DS ---
Providers Date of admission: 01/01/22 17:12 Expected date of discharge: 01/05/22 Attending physician: Jacqueline Carreon MD Consults: 01/01/22 17:09 Consult Physician Urgent Consulting Provider: Precious Frederick Consult Reason/Comments: suspected cva Do you want consulting provider notified?: Yes 01/03/22 10:07 Consult Physician Routine Consulting Provider: Bryan Keenan Consult Reason/Comments: inpatient rehab Do you want consulting provider notified?: Yes 01/04/22 08:32 Consult Physician Routine Consulting Provider: Beatris Madison Consult Reason/Comments: Peripheral arterial disease, moderate bilateral ICA stenosis, CVA Do you want consulting provider notified?: Yes Primary care physician: 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 MRI revealed acute to subacute infarct measuring 1 cm in the left parietal periventricular white matter with a punctate 1-2 mm acute distress of acute infarct in the left cerebral hemisphere. Patient to continue with warfarin, Plavix, and atorvastatin. Patient being discharged to inpatient rehab under Dr. Keenan. Patient to follow-up outpatient with neurology upon discharge from rehab. Bilateral Carotid artery stenosis,follow-up outpatient with vascular surgery Dr. España in 2 weeks. History of CVA in 2011 and TIA in 2016 Fall resulting in right rib pain, small contusion to right posterior rib region approximately 1.5 x 1 cm. X-ray right ribs negative for fracture. Chronic persistent atrial fibrillation. Continue anticoagulation with Coumadin. Hypertension. Currently vital signs stable and we will continue with daily Norvasc 5 mg each morning. Hyperlipidemia. Lipid profile unremarkable with the exception of low HDL of 37.3. Continue atorvastatin 40 mg daily Hospital Course: Patient is a very pleasant 86-year-old male with a past medical history of atrial fibrillation on anticoagulation with Coumadin, hypertension, hyperlipidemia, and history of a CVA in 2011 and TIA in 2016. Patient presented to the emergency department on 01/01/22 with a chief complaint of right-sided weakness, right-sided facial droop, and slurred speech. Patient underwent full evaluation in the emergency department. CBC unremarkable. CMP revealing an acute kidney injury with BUN is 14, creatinine 1.26, GFR 52. INR was therapeutic at 2.7. CT head was completed showing cerebral atrophy and chronic small vessel ischemia negative for acute intercranial process. CTA head negative for significant intracranial angiographic abnormality. CT neck revealing stenosis at the origins of both internal carotid arteries with 50% stenosis at the origin of the left internal carotid artery and 30% stenosis at the origin of the right internal carotid artery. EKG revealed atrial fibrillation with a slow ventricular response at 58 bpm. Patient admitted under our services with consultation to neurology. Hemoglobin A1c 5.8%. Lipid profile unremarkable with the exception of low HDL of 37.30. Carotid Dopplers completed revealing antegrade flow in the vertebral arteries with close to 50% stenosis in both internal carotid arteries with reports of some progression of the plaque formation compared to previous examination completed on 12/24/2015. Patient underwent MRI which revealed acute to subacute infarct measuring 1 cm in the left parietal periventricular white matter with a punctate 1-2 mm acute distress of acute infarct in the left cerebral hemisphere. Echocardiogram revealing normal EF of 55-60% with mild mitral and tricuspid regurgitation as well as moderate aortic stenosis. Was notified on the evening of 01/03/22 that patient's right lower extremity weakness/decreased sensation resulted in a fall when he stood up in the shower. X-ray ribs was negative for rib fracture. Pt was evaluated by Dr. Keenan and has been accepted to go to inpatient rehab. Pt to go to rehab and follow up outpatient with PCP, Neurology, and vascular surgery. Patient to continue with warfarin, Plavix, and atorvastatin. Physical exam: Vital signs reviewed and stable. General: Nontoxic, no distress and appears stated age. Derm: Skin warm and dry, normal coloration for ethnicity. Head: Atraumatic, normocephalic and symmetric. Eyes: EOMs intact, no lid lag, and anicteric sclera Mouth: no lip lesions, mucus membranes moist Cardiovascular: regular rate and rhythm with normal S1S2, no murmur, positive posterior tibial pulses bilaterally, and cap refill < 2 seconds. Lungs: Respirations even, regular, and unlabored on room air. Lungs CTA bilaterally, no rhonchi, no rales, no wheezing, and no accessory muscle usage. Abdominal: soft, nontender to palpation, no guarding, no appreciable organomegaly Ext: ROM intact. No gross muscle atrophy, no edema, no contractures Neuro: Speech slurred and garbled at times with moderate right-sided facial droop, 4 out of 5 strength in right lower extremity and 5 out of 5 to left lower extremity and 5 out of 5 strength to right upper and left upper extremities. Decreased sensation reported to right upper and right lower extremity. rossly intact with no noted focal neuro deficits Psych: Alert and oriented to person, place, time, and situation. Appropriate and pleasant affect. A total of 35 minutes of time were spent preparing this complex discharge summary. Pt was discharged on 01/05/22 at 9:50 AM. Patient Condition at Discharge: Stable Plan - Discharge Summary Discharge Rx Participant: Yes New Discharge Prescriptions: New Atorvastatin [Lipitor] 40 mg PO DAILY 30 Days #30 tab Clopidogrel [Plavix] 75 mg PO DAILY 30 Days #30 tab amLODIPine [Norvasc] 5 mg PO DAILY 30 Days #30 tab Continue Aspirin 81 mg PO DAILY #30 chew Warfarin [Coumadin] 2.5 mg PO HS Discontinued Simvastatin [Zocor] 40 mg PO DAILY lisinopriL [Zestril] 5 mg PO DAILY Discharge Medication List Aspirin 81 mg PO DAILY #30 chew 12/27/15 [Rx] Warfarin [Coumadin] 2.5 mg PO HS 01/01/22 [History] Atorvastatin [Lipitor] 40 mg PO DAILY 30 Days #30 tab 01/05/22 [Rx] Clopidogrel [Plavix] 75 mg PO DAILY 30 Days #30 tab 01/05/22 [Rx] amLODIPine [Norvasc] 5 mg PO DAILY 30 Days #30 tab 01/05/22 [Rx] Follow up Appointment(s)/Referral(s): Bentley Azevedo MD [STAFF PHYSICIAN] - 1 Week Tony España DO [STAFF PHYSICIAN] - 2 Weeks Rajni Black MD [REFERRING] - 1 Week [facility] Visiting Nurse, [NON-STAFF] - Activity/Diet/Wound Care/Special Instructions: Activity: As tolerated. Take breaks as needed. Diet: Heart healthy and carb consistent diet. Avoid salts, or foods with hidden salts such as canned or boxed foods and frozen dinners. Extra salt makes your heart work harder and traps the fluid in your body for longer. Special Instructions: Take all of your medications as directed and remember to keep all of your doctor's appointments and follow-up as needed. Thank you for allowing us to participate in your care, it was truly a pleasure having you for our patient!!! Discharge Disposition: TRANSFER TO SNF/ECF
[2022-01-05] MEDS: amLODIPine 5 MG TAB PO SCH (10:14)
[2022-01-05] MEDS: ATORVASTATIN 40 MG TAB PO SCH (10:16)
[2022-01-05] MEDS: CLOPIDOGREL 75 MG TAB PO SCH (10:16)
[2022-01-05] MEDS: ACETAMINOPHEN TAB 325 MG TAB PO PRN (10:17)
[2022-01-05] MEDS ORDERED: WARFARIN 2.5 MG TAB PO ONE (18:00)
== END 2022-01-05 11:28 | DRG 64 ==
LOC: EC 15:16 → 3SCARD 17:12
PROVIDERS: ADMIT Internal Medicine; ATTEND Internal Medicine
DX: I63.29 Cerebral infarction due to unspecified occlusion or stenosis of other precerebral arteries (principal); I50.31 Acute diastolic (congestive) heart failure; I63.542 Cerebral infarction due to unspecified occlusion or stenosis of left cerebellar artery; I48.19 Other persistent atrial fibrillation; N17.9 Acute kidney failure, unspecified; I16.1 Hypertensive emergency; G81.91 Hemiplegia, unspecified affecting right dominant side; I11.0 Hypertensive heart disease with heart failure; I70.211 Atherosclerosis of native arteries of extremities with intermittent claudication, right leg; Z66 Do not resuscitate; I16.0 Hypertensive urgency; R29.810 Facial weakness; R53.1 Weakness; I08.3 Combined rheumatic disorders of mitral, aortic and tricuspid valves; R47.81 Slurred speech; I65.23 Occlusion and stenosis of bilateral carotid arteries; R47.1 Dysarthria and anarthria; R29.703 NIHSS score 3; R47.01 Aphasia; S20.221A Contusion of right back wall of thorax, initial encounter; G31.89 Other specified degenerative diseases of nervous system; R74.01 Elevation of levels of liver transaminase levels; R29.707 NIHSS score 7; E86.0 Dehydration; W18.30XA Fall on same level, unspecified, initial encounter; Y92.231 Patient bathroom in hospital as the place of occurrence of the external cause; R07.81 Pleurodynia; E78.5 Hyperlipidemia, unspecified; H91.90 Unspecified hearing loss, unspecified ear; R26.9 Unspecified abnormalities of gait and mobility; F17.210 Nicotine dependence, cigarettes, uncomplicated; Z79.899 Other long term (current) drug therapy; Z79.01 Long term (current) use of anticoagulants; Z79.82 Long term (current) use of aspirin; Z86.73 Personal history of transient ischemic attack (TIA), and cerebral infarction without residual deficits; Z87.442 Personal history of urinary calculi; Z83.3 Family history of diabetes mellitus; Z90.49 Acquired absence of other specified parts of digestive tract; Z87.19 Personal history of other diseases of the digestive system; Z98.42 Cataract extraction status, left eye; Z98.41 Cataract extraction status, right eye; Z96.1 Presence of intraocular lens
CPT/HCPCS: 36415; 70450; 70496; 70498; 70551; 71046; 80048; 80053; 80061; 83036; 83735; 83880; 84484; 85025; 85027; 85610; 85730; 93005; 93306; 93880; 93923; 96374; 99291

== ENCOUNTER 2022-02-05 10:12 | Emergency (ER) | payer MEDICARE ==
--- NOTE | 2022-02-05 11:00 | ED ---
General Adult HPI - General Chief complaint: Shortness of Breath Stated complaint: chest & abd pain Time Seen by Provider: 02/05/22 10:13 Source: patient, EMS, RN notes reviewed, old records reviewed Mode of arrival: EMS Limitations: no limitations - History of Present Illness Initial comments: 87-year-old male presenting for evaluation of cough and dyspnea. Patient had recent CVA was admitted to this hospital. He had some residual right-sided weakness which she states is improving. Over the past 24 hours he developed increased dyspnea. He also had complained of some abdominal pain which she attributed to constipation as he is not had a regular bowel movement. The medics had reported there was some concern for speech abnormality but the timing of this change was not known. He is on Coumadin with history of atrial fibrillation. - Related Data Home Medications Medication Instructions Recorded Confirmed Warfarin [Coumadin] 2.5 mg PO HS 01/01/22 01/01/22 Previous Rx's Medication Instructions Recorded Aspirin 81 mg PO DAILY #30 chew 12/27/15 Atorvastatin [Lipitor] 40 mg PO DAILY 30 Days #30 tab 01/05/22 Clopidogrel [Plavix] 75 mg PO DAILY 30 Days #30 tab 01/05/22 amLODIPine [Norvasc] 5 mg PO DAILY 30 Days #30 tab 01/05/22 Allergies Allergy/AdvReac Type Severity Reaction Status Date / Time No Known Allergies Allergy Verified 01/01/22 17:05 Review of Systems ROS Statement: Those systems with pertinent positive or pertinent negative responses have been documented in the HPI. ROS Other: All systems not noted in ROS Statement are negative. Past Medical History Past Medical History: Atrial Fibrillation, CVA/TIA, Eye Disorder, Hearing Disorder / Deafness, Hyperlipidemia, Hypertension Additional Past Medical History / Comment(s): CVA 2010; POSS TIA 12/24/15. PAD, LOWER EXTREMITIES. HX CATARACTS. RT URETERAL CALCULUS CURRENTLY, C/O PAIN AND BLOOD IN URINE. History of Any Multi-Drug Resistant Organisms: None Reported Past Surgical History: Cholecystectomy, Hernia Repair Additional Past Surgical History / Comment(s): EXC CATARACTS W/ IMPLANTS. NOVEMBER 2013 ABD AORTOGRAM, 11/2015. RT ESWL 01/15/16. Past Anesthesia/Blood Transfusion Reactions: No Reported Reaction Past Psychological History: No Psychological Hx Reported Past Alcohol Use History: Occasional Past Drug Use History: None Reported - Past Family History Mother Family Medical History: Diabetes Mellitus General Exam Limitations: no limitations General appearance: alert, in no apparent distress Head exam: Present: atraumatic, normocephalic Eye exam: Present: normal appearance, PERRL ENT exam: Present: mucous membranes dry Neck exam: Present: normal inspection. Absent: tenderness, meningismus Respiratory exam: Present: rhonchi, decreased breath sounds. Absent: respiratory distress Cardiovascular Exam: Present: regular rate, irregular rhythm GI/Abdominal exam: Present: soft, tenderness (Left lower quadrant tenderness). Absent: distended, guarding, rebound Extremities exam: Present: normal inspection, normal capillary refill. Absent: pedal edema Neurological exam: Present: alert, oriented X3 Psychiatric exam: Present: normal affect, normal mood Skin exam: Present: warm, dry, intact. Absent: cyanosis, diaphoretic Course Vital Signs 02/05/22 02/05/22 10:22 11:10 Temperature 97.1 F L Pulse Rate 71 73 Respiratory 24 16 Rate Blood Pressure 109/49 119/89 O2 Sat by Pulse 100 100 Oximetry EKG Findings - EKG Comments: EKG Findings:: EKG: Atrial fibrillation rate of 88, incomplete right bundle-branch block, QRS duration 100, QTC 435, no ST segment elevation, frequent PVC Medical Decision Making - Medical Decision Making 87-year-old male presenting for evaluation of dyspnea. Patient is a poor historian, common from [facility], he had been recently seen at this institution for CVA. He is currently on Coumadin. Multiple patient and his family member in indicating that he was improving from the CVA with physical therapy. Her complaint of abdominal pain and constipation. On exam his abdomen is soft with very minimal tenderness in the left lower quadrant. He's in atrial fibrillation which is rate controlled. I did initiate workup which showed significant abnormalities including a mild leukocytosis, I Anemia of 6.0 with previous hemoglobin one month ago of 14.5. At this time I did perform a rectal exam which did reveal melanotic stool. He is on Coumadin and his INR is supratherapeutic at 3.9. He takes Coumadin for atrial fibrillation and has had a recent stroke. Additionally the patient has a significant lactic acid of 11.4. He is given 500 mL bolus and continuous IV fluid because he has an elevated BNP and does have some pulmonary edema on chest x-ray. He's given 2 units of packed RBCs, 80 mg of Protonix, K Sentra to reverse his Coumadin. This institution does not currently have gastroenterology. He will require transfer and case is discussed with Dr. Dilip Beckham. Family at bedside is informed of the poor prognosis given the acute blood loss in the lactic acid. - Lab Data Result diagrams: 02/05/22 11:04 02/05/22 11:04 Lab Results 02/05/22 02/05/22 02/05/22 Range/Units 11:04 11:04 11:04 WBC 10.9 H (3.8-10.6) k/uL RBC 2.01 L (4.30-5.90) m/uL Hgb 6.0 L* D (13.0-17.5) gm/dL Hct 19.6 L* (39.0-53.0) % MCV 97.4 D (80.0-100.0) fL MCH 29.7 (25.0-35.0) pg MCHC 30.5 L (31.0-37.0) g/dL RDW 17.6 H (11.5-15.5) % Plt Count 302 (150-450) k/uL MPV 8.7 Neutrophils % 85 % Lymphocytes % 8 % Monocytes % 5 % Eosinophils % 0 % Basophils % 0 % Neutrophils # 9.3 H (1.3-7.7) k/uL Lymphocytes # 0.9 L (1.0-4.8) k/uL Monocytes # 0.5 (0-1.0) k/uL Eosinophils # 0.0 (0-0.7) k/uL Basophils # 0.0 (0-0.2) k/uL Hypochromasia Marked Anisocytosis Slight Macrocytosis Slight PT 38.6 H (9.0-12.0) sec INR 3.9 H (<1.2) APTT 27.4 (22.0-30.0) sec Sodium 135 L (137-145) mmol/L Potassium 5.0 (3.5-5.1) mmol/L Chloride 103 (98-107) mmol/L Carbon Dioxide 11 L (22-30) mmol/L Anion Gap 21 mmol/L BUN 44 H (9-20) mg/dL Creatinine 1.66 H (0.66-1.25) mg/dL Est GFR (CKD-EPI)AfAm 43 (>60 ml/min/1.73 sqM) Est GFR (CKD-EPI)NonAf 37 (>60 ml/min/1.73 sqM) Glucose 195 H (74-99) mg/dL Plasma Lactic Acid Philippe (0.7-2.0) mmol/L Calcium 8.2 L (8.4-10.2) mg/dL Magnesium 2.0 (1.6-2.3) mg/dL Total Bilirubin 0.7 (0.2-1.3) mg/dL AST 28 (17-59) U/L ALT 31 (4-49) U/L Alkaline Phosphatase 89 (38-126) U/L NT-Pro-B Natriuret Pep pg/mL Total Protein 5.9 L (6.3-8.2) g/dL Albumin 3.5 (3.5-5.0) g/dL Stool Occult Blood (Negative) Coronavirus (PCR) (Not Detectd) Blood Type Recheck Bld Type Recheck Status Spec Expiration Date 02/05/22 02/05/22 02/05/22 Range/Units 11:04 11:04 11:04 WBC (3.8-10.6) k/uL RBC (4.30-5.90) m/uL Hgb (13.0-17.5) gm/dL Hct (39.0-53.0) % MCV (80.0-100.0) fL MCH (25.0-35.0) pg MCHC (31.0-37.0) g/dL RDW (11.5-15.5) % Plt Count (150-450) k/uL MPV Neutrophils % % Lymphocytes % % Monocytes % % Eosinophils % % Basophils % % Neutrophils # (1.3-7.7) k/uL Lymphocytes # (1.0-4.8) k/uL Monocytes # (0-1.0) k/uL Eosinophils # (0-0.7) k/uL Basophils # (0-0.2) k/uL Hypochromasia Anisocytosis Macrocytosis PT (9.0-12.0) sec INR (<1.2) APTT (22.0-30.0) sec Sodium (137-145) mmol/L Potassium (3.5-5.1) mmol/L Chloride (98-107) mmol/L Carbon Dioxide (22-30) mmol/L Anion Gap mmol/L BUN (9-20) mg/dL Creatinine (0.66-1.25) mg/dL Est GFR (CKD-EPI)AfAm (>60 ml/min/1.73 sqM) Est GFR (CKD-EPI)NonAf (>60 ml/min/1.73 sqM) Glucose (74-99) mg/dL Plasma Lactic Acid Philippe 11.4 H* (0.7-2.0) mmol/L Calcium (8.4-10.2) mg/dL Magnesium (1.6-2.3) mg/dL Total Bilirubin (0.2-1.3) mg/dL AST (17-59) U/L ALT (4-49) U/L Alkaline Phosphatase (38-126) U/L NT-Pro-B Natriuret Pep 3880 pg/mL Total Protein (6.3-8.2) g/dL Albumin (3.5-5.0) g/dL Stool Occult Blood (Negative) Coronavirus (PCR) Not Detected (Not Detectd) Blood Type Recheck Bld Type Recheck Status Spec Expiration Date 02/05/22 02/05/22 Range/Units 11:50 11:58 WBC (3.8-10.6) k/uL RBC (4.30-5.90) m/uL Hgb (13.0-17.5) gm/dL Hct (39.0-53.0) % MCV (80.0-100.0) fL MCH (25.0-35.0) pg MCHC (31.0-37.0) g/dL RDW (11.5-15.5) % Plt Count (150-450) k/uL MPV Neutrophils % % Lymphocytes % % Monocytes % % Eosinophils % % Basophils % % Neutrophils # (1.3-7.7) k/uL Lymphocytes # (1.0-4.8) k/uL Monocytes # (0-1.0) k/uL Eosinophils # (0-0.7) k/uL Basophils # (0-0.2) k/uL Hypochromasia Anisocytosis Macrocytosis PT (9.0-12.0) sec INR (<1.2) APTT (22.0-30.0) sec Sodium (137-145) mmol/L Potassium (3.5-5.1) mmol/L Chloride (98-107) mmol/L Carbon Dioxide (22-30) mmol/L Anion Gap mmol/L BUN (9-20) mg/dL Creatinine (0.66-1.25) mg/dL Est GFR (CKD-EPI)AfAm (>60 ml/min/1.73 sqM) Est GFR (CKD-EPI)NonAf (>60 ml/min/1.73 sqM) Glucose (74-99) mg/dL Plasma Lactic Acid Philippe (0.7-2.0) mmol/L Calcium (8.4-10.2) mg/dL Magnesium (1.6-2.3) mg/dL Total Bilirubin (0.2-1.3) mg/dL AST (17-59) U/L ALT (4-49) U/L Alkaline Phosphatase (38-126) U/L NT-Pro-B Natriuret Pep pg/mL Total Protein (6.3-8.2) g/dL Albumin (3.5-5.0) g/dL Stool Occult Blood Positive (Negative) Coronavirus (PCR) (Not Detectd) Blood Type Recheck No Previous Record Bld Type Recheck Status CABO Indicated Spec Expiration Date 02/08/2022 - 235 Critical Care Time Critical Care Time: Yes Total Critical Care Time: 35 Disposition Clinical Impression: Upper GI hemorrhage, Acute blood loss anemia, Lactic acidosis, Cerebrovascular accident (CVA) Disposition: OTHER INSTITUTION NOT DEFINED Condition: Serious Is patient prescribed a controlled substance at d/c from ED?: No Referrals: None,Stated [Primary Care Provider] - 1-2 days Time of Disposition: 12:26 - Out of Hospital Transfer - Req. Specs Out of Hospital Transfer - Requested Specifics: Other Emergency Center ([facility]
[2022-02-05 11:24] LABS: Anisocytosis Slight; Basophils % (A) 0 %; Eosinophils % (A) 0 %; Hypochromasia Marked; Lymphocytes # (A) 0.9 k/uL (1.0-4.8); Lymphocytes % (A) 8 %; MCH 29.7 pg (25.0-35.0); MCHC 30.5 g/dL (31.0-37.0); Macrocytosis Slight; Mean Platelet Volume 8.7; Monocytes # (A) 0.5 k/uL (0-1.0); Monocytes % (A) 5 %; Neutrophils # (A) 9.3 k/uL (1.3-7.7); Neutrophils % (A) 85 %; Platelet Count 302 k/uL (150-450); RBC 2.01 m/uL (4.30-5.90); RDW 17.6 % (11.5-15.5); WBC 10.9 k/uL (3.8-10.6)
[2022-02-05 11:35] LABS: HCT 19.6 % (39.0-53.0)
[2022-02-05 11:36] LABS: MCV 97.4 fL (80.0-100.0)
[2022-02-05 11:40] LABS: Albumin 3.5 g/dL (3.5-5.0); Calcium 8.2 mg/dL (8.4-10.2); Total Bilirubin 0.7 mg/dL (0.2-1.3); Total Protein 5.9 g/dL (6.3-8.2)
--- NOTE | 2022-02-05 11:40 | CT ---
EXAMINATION TYPE: CT brain wo con CT DLP: 1155.4 mGycm, Automated exposure control for dose reduction was used. DATE OF EXAM: 02/05/2022 11:30 AM COMPARISON: 01/01/2022. CLINICAL INDICATION:Male, 87 years old with history of Slurred speech, TECHNIQUE: Brain: Axial CT images of the brain were obtained with coronal and sagittal reformats created and rev iewed. Contrast used: None. Oral contrast used: None. FINDINGS: Brain: Extra-axial spaces: No abnormal extra-axial fluid collections. Ventricular system: Within normal limits Cerebral parenchyma: Hypodensity within the left cheema radiata series 201 image 35. No acute intraparenchymal hemorrhage or mass effect. The garza-white junction is well differentiated. Cerebellum: Unremarkable. Mass effect: No evidence of midline shift. Intracranial vasculature: unremarkable Soft tissues: Normal. Calvarium/osseous structures: No depressed skull fracture. Paranasal sinuses and mastoid air cells: Mild scattered paranasal sinus disease. Visualized orbits: Senile calcific scleral plaques are present. Bilateral aphakia IMPRESSION: Hypodense area in the left cheema radiata new from 01/01/2022 findings could represent acute/subacute infarct, consider MRI for further evaluation for chronicity.
[2022-02-05] MEDS ORDERED: PANTOPRAZOLE 40 MG/10 ML VIAL IVP STA (11:44)
[2022-02-05 11:45] LABS: INR 3.9 (<1.2); Partial Thromboplastin Time 27.4 sec (22.0-30.0); Prothrombin Time 38.6 sec (9.0-12.0)
--- NOTE | 2022-02-05 11:49 | XR ---
EXAMINATION TYPE: XR chest 2V DATE OF EXAM: 02/05/2022 11:31 AM COMPARISON: Chest radiographs from 01/03/2022 TECHNIQUE: XR chest 2V Frontal and lateral views of the chest. CLINICAL INDICATION:Male, 87 years old with history of difficulty breathing; FINDINGS: Lungs/Pleura: Blunting of the posterior costophrenic angles. There is no evidence of pleural effusion , focal consolidation, or pneumothorax. Pulmonary vascularity: Pulmonary vascular congestion. Heart/mediastinum: Cardiomediastinal silhouette is enlarged and stable. Musculoskeletal: No acute osseous pathology. IMPRESSION: Cardiomegaly with trace bilateral pleural effusions and minimal pulmonary vascular congestion. Correl ate with BNP for congestive heart failure.
--- NOTE | 2022-02-05 11:50 | XR ---
EXAMINATION TYPE: XR KUB DATE OF EXAM: 02/05/2022 11:33 AM INDICATION: Patient age:Male; 87 years old; Reason for study: pain; COMPARISON: 01/29/2016. TECHNIQUE: One radiographic view of the abdomen was obtained. FINDINGS: The bowel gas pattern is nonspecific without dilated loops of small or large bowel. There i s no evidence for organomegaly or pneumoperitoneum. The osseous structures are intact. No abnormal calcifications are present. Fecal material and gas are demonstrated throughout the colon and rectum. End-stage right hip osteoarthrosis with [id number] articulation. Multilevel disc degeneration merrill ges throughout the spine. IMPRESSION: 1. Nonspecific bowel gas pattern without radiographic evidence for acute process. 2. End-stage right hip osteoarthrosis.
[2022-02-05] MEDS ORDERED: Kcentra PER PHARMACY 1 EACH MISC MISCELLANE PRN (11:51)
[2022-02-05] MEDS ORDERED: PHYTONADIONE 10 MG in SODIUM CHLORIDE 0.9% 50 ML IVPB STA (11:59)
[2022-02-05] MEDS ORDERED: HUMAN PROTHROMBIN COMPLX IV ONE (12:00)
[2022-02-05] MEDS ORDERED: SODIUM CHLORIDE 0.9% 500 ML 500 ML IV ONE (12:22)
[2022-02-05] MEDS ORDERED: SODIUM CHLORIDE 0.9% 1,000 ML IV SCH (12:30)
[2022-02-05 13:30] VITALS: BP 103/60; PULSE 85; RESP 20; TEMP 97.6
== END 2022-02-05 14:15 | disposition other institution (70) ==
LOC: EC 10:12
DX: I63.9 Cerebral infarction, unspecified (principal); E87.2 Acidosis; D62 Acute posthemorrhagic anemia; K92.2 Gastrointestinal hemorrhage, unspecified; I20.9 Angina pectoris, unspecified; E78.5 Hyperlipidemia, unspecified; I10 Essential (primary) hypertension; H91.90 Unspecified hearing loss, unspecified ear; Z79.01 Long term (current) use of anticoagulants; Z86.73 Personal history of transient ischemic attack (TIA), and cerebral infarction without residual deficits
CPT/HCPCS: 36415; 93005; 86900; 86901; 83880; 80053; 83605; 83735; 85025; 85610; 85730; 86850; 86920; 82272; 87635; 71046; 74018; 70450; 99285; 96365; 96368; 96361; 96375; P9016; J3430; J7168; C9113

== ENCOUNTER 2022-02-19 10:54 | Emergency (ER) | payer MEDICARE ==
--- NOTE | 2022-02-19 12:38 | XR ---
EXAMINATION TYPE: XR chest 2V DATE OF EXAM: 02/19/2022 COMPARISON: Chest x-ray 02/05/2022 HISTORY: Redness of breath TECHNIQUE: Frontal and lateral views of the chest are obtained. FINDINGS: There is no focal air space opacity, pleural effusion, or pneumothorax seen. Pleural calci fications are again noted bilaterally. There is thoracic spondylosis. Aorta is dense. Retraction of t he left hilum towards the apical scarring is chronic. The cardiac silhouette size is within normal li mits. The osseous structures are intact. IMPRESSION: No acute cardiopulmonary process. Correlate for asbestos related disease
[2022-02-19] MEDS ORDERED: IPRATROPIUM-ALBUTEROL 3 ML NEB INHALATION STA (13:01)
--- NOTE | 2022-02-19 13:01 | ED ---
General Adult HPI - General Chief complaint: Shortness of Breath Stated complaint: COVID, low o2 Time Seen by Provider: 02/19/22 12:47 Source: patient, family, RN notes reviewed Mode of arrival: ambulatory Limitations: no limitations - History of Present Illness Initial comments: Patient is a pleasant 87-year-old male presenting to the emergency department with concern for oxygen level. Patient was recently diagnosed 2 days ago with COVID-19 infection. Patient started Paxlovid yesterday for this. Family checked oxygen level this morning and was in the 70s however hands were cold at this time. Patient denies any difficulty in breathing. Patient does admit to having some fatigue and mild cough. - Related Data Home Medications Medication Instructions Recorded Confirmed Warfarin [Coumadin] 2.5 mg PO HS 01/01/22 01/01/22 Previous Rx's Medication Instructions Recorded Aspirin 81 mg PO DAILY #30 chew 12/27/15 Atorvastatin [Lipitor] 40 mg PO DAILY 30 Days #30 tab 01/05/22 Clopidogrel [Plavix] 75 mg PO DAILY 30 Days #30 tab 01/05/22 amLODIPine [Norvasc] 5 mg PO DAILY 30 Days #30 tab 01/05/22 Albuterol Inhaler [Ventolin Hfa 2 puff INHALATION Q4HR PRN #1 each 02/19/22 Inhaler] Allergies Allergy/AdvReac Type Severity Reaction Status Date / Time No Known Allergies Allergy Verified 01/01/22 17:05 Review of Systems ROS Statement: Those systems with pertinent positive or pertinent negative responses have been documented in the HPI. ROS Other: All systems not noted in ROS Statement are negative. Constitutional: Denies: fever Eyes: Denies: eye pain ENT: Reports: congestion. Denies: ear pain Respiratory: Reports: cough. Denies: dyspnea Cardiovascular: Denies: chest pain Endocrine: Reports: fatigue Gastrointestinal: Denies: abdominal pain Genitourinary: Denies: dysuria Musculoskeletal: Denies: back pain Skin: Denies: rash Neurological: Denies: weakness Past Medical History Past Medical History: Atrial Fibrillation, CVA/TIA, Eye Disorder, Hearing Disorder / Deafness, Hyperlipidemia, Hypertension Additional Past Medical History / Comment(s): CVA 2010; POSS TIA 12/24/15. PAD, LOWER EXTREMITIES. HX CATARACTS. RT URETERAL CALCULUS CURRENTLY, C/O PAIN AND BLOOD IN URINE. History of Any Multi-Drug Resistant Organisms: None Reported Past Surgical History: Cholecystectomy, Hernia Repair Additional Past Surgical History / Comment(s): EXC CATARACTS W/ IMPLANTS. NOVEMBER 2013 ABD AORTOGRAM, 11/2015. RT ESWL 01/15/16. Past Anesthesia/Blood Transfusion Reactions: No Reported Reaction Past Psychological History: No Psychological Hx Reported Past Alcohol Use History: Occasional Past Drug Use History: None Reported - Past Family History Mother Family Medical History: Diabetes Mellitus General Exam Limitations: no limitations General appearance: alert, in no apparent distress Eye exam: Present: normal appearance Neck exam: Present: normal inspection Respiratory exam: Present: normal lung sounds bilaterally. Absent: respiratory distress, wheezes Cardiovascular Exam: Present: regular rate, normal rhythm GI/Abdominal exam: Present: soft. Absent: tenderness Extremities exam: Present: normal inspection Neurological exam: Present: alert Psychiatric exam: Present: normal affect, normal mood Skin exam: Present: normal color Course Vital Signs 02/19/22 02/19/22 11:00 13:38 Temperature 97.5 F L Pulse Rate 84 64 Respiratory 22 18 Rate Blood Pressure 138/67 O2 Sat by Pulse 99 100 Oximetry Medical Decision Making - Medical Decision Making Patient reevaluated. Patient and family updated. Pulse ox remains 100% on room air. Patient feels comfortable with discharge home. Family did request INR test. This is advised to be rechecked in the next week. - Lab Data Lab Results 02/19/22 Range/Units 13:54 PT 16.9 H (9.0-12.0) sec INR 1.7 H (<1.2) APTT 35.1 H (22.0-30.0) sec - Radiology Data Radiology results: image reviewed (Chest x-ray shows pleural calcifications. No acute process. Correlate for asbestosis-related disease.) Disposition Clinical Impression: COVID-19 Disposition: HOME SELF-CARE Condition: Stable Instructions (If sedation given, give patient instructions): COVID-19 (Coronavirus Disease 2019) (ED) Additional Instructions: Prescription for inhaler sent to pharmacy. Giut-and-apaucdo Tylenol as needed. Continue prescription for paxlovid. Ejfb-[id number] vitamin C, vitamin D, and zinc have been shown to help. Return for difficulty breathing, not tolerating fluids, worsening or changing symptoms or other concerns Prescriptions: Albuterol Inhaler [Ventolin Hfa Inhaler] 2 puff INHALATION Q4HR PRN #1 each PRN Reason: Dyspnea Is patient prescribed a controlled substance at d/c from ED?: No Referrals: Doug Leal MD [Primary Care Provider] - 1-2 days Time of Disposition: 14:49
[2022-02-19] MEDS ORDERED: ALBUTEROL HFA INHALER INHALATION STA (13:04)
[2022-02-19 13:39] VITALS: RESP 18
[2022-02-19 14:37] LABS: INR 1.7 (<1.2); Partial Thromboplastin Time 35.1 sec (22.0-30.0); Prothrombin Time 16.9 sec (9.0-12.0)
[2022-02-19 15:16] VITALS: BP 122/73; PULSE 56; TEMP 97.7
== END 2022-02-19 15:16 | disposition home or self-care (01) ==
LOC: EC 10:54
DX: U07.1 COVID-19 (principal); I10 Essential (primary) hypertension; E78.5 Hyperlipidemia, unspecified; I48.91 Unspecified atrial fibrillation; Z79.899 Other long term (current) drug therapy
CPT/HCPCS: 36415; 71046; 85610; 85730; 94640; 99284

== ENCOUNTER → 2023-10-05 | Outpatient (CLI) | payer MEDICARE ==
[2023-10-05 15:02] LABS: African American GFR (CKD) 49 (>60 ml/min/1.73 sqM); Blood Urea Nitrogen 26 mg/dL (9-20); Non-African American GFR(CKD) 42 (>60 ml/min/1.73 sqM)
--- NOTE | 2023-10-05 15:56 | CT ---
EXAMINATION TYPE: CT brain wo/w con DATE OF EXAM: 10/05/2023 COMPARISON: 02/05/2022 INDICATION: Stroke x 1 year ago. DLP: 2024.4 mGycm, Automated exposure control for dose reduction was used. CONTRAST: None CT of the brain is performed utilizing 3 mm thick sections through the posterior fossa and 3 mm thick sections through the remaining calvarium. Study is performed within 24 hours of arrival to the hosp ital. No abnormal hyperdensity is present to suggest an acute intracranial hemorrhage. No mass lesion is evident. Some calcification may be along the falx. This is similar in comparison. No acute infarcts are evident. Periventricular white matter hypodensity is present, likely on the bas is of chronic white matter ischemic changes. An old lacunar infarct within the left cheema radiata ma y be present, this was present previously Ventricles and sulci are mildly prominent for the patient age. Paranasal sinuses and mastoid air cells within the amygs-so-uoqx are clear. IMPRESSION: 1. 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 2. Chronic appearing periventricular white matter ischemic type changes. 3. No acute intracranial process. Follow-up MRI can be performed as clinically indicated
--- NOTE | 2023-10-05 16:15 | US ---
EXAMINATION TYPE: US kidneys/renal and bladder DATE OF EXAM: 10/05/2023 COMPARISON: CT 2019 CLINICAL INDICATION: Male, 88 years old with history of R41.0 CONFUSION; Acute kidney injury. EXAM MEASUREMENTS: Right Kidney: 11.2 x 5.4 x 4.7 cm Left Kidney: 10.0 x 4.5 x 4.3 cm Right Kidney: No hydronephrosis or masses seen Left Kidney: Anechoic area compatible with simple cyst seen at mid: 1.6 x 1.1 x 1.0 cm. *Hyperechoic focus with posterior shadowing seen at the lower pole: 1.2 x 1.3 x 0.5 cm. Bladder: Appears anechoic. Bilateral Jets seen: Yes IMPRESSION: 1. Nonobstructing inferior pole left renal stone. 2. Simple appearing cyst upper pole left kidney
== END | disposition home or self-care (01) ==
LOC: RADUSWWP 13:08
PROVIDERS: ATTEND Internal Medicine
DX: N20.0 Calculus of kidney (principal); G93.89 Other specified disorders of brain; N17.9 Acute kidney failure, unspecified; N28.1 Cyst of kidney, acquired; N18.9 Chronic kidney disease, unspecified
CPT/HCPCS: 82565; 84520; 76770; 70470; 36415; Q9967

== ENCOUNTER → 2023-10-17 | Outpatient (CLI) | payer MEDICARE ==
--- NOTE | 2023-10-17 16:15 | CA ---
Transthoracic Echo Report Name: Oskar Stinson Age: 88 Gender: M : 1935 Exam Date: 10/17/2023 14:44 Exam Location: [facility] Ht (in): 72 Wt (lb): 166 Ordering Physician: Raghavendra Elmore DO ([email or web address]) Attending/Referring Phys: Heavy Antiarmor Weapons Infantryman Yvette Ozuna RDCS Procedure CPT: Indications: I35.0 Nonrheumatic aortic (valve) stenosis Cardiac Hx: Technical Quality: Fair Contrast 1: Total Dose (mL): Contrast 2: Total Dose (mL): MEASUREMENTS (Male / Female) Normal Values 2D ECHO LV Diastolic Diameter PLAX 4.3 cm 4.2 - 5.9 / 3.9 - 5.3 cm LV Systolic Diameter PLAX 3.1 cm IVS Diastolic Thickness 0.8 cm 0.6 - 1.0 / 0.6 - 0.9 cm LVPW Diastolic Thickness 1.0 cm 0.6 - 1.0 / 0.6 - 0.9 cm LV Relative Wall Thickness 0.4 RV Internal Dim ED PLAX 2.8 cm LVOT Diameter 2.2 cm LV Diastolic Volume MOD BP 79.7 cm??? 67 - 155 / 56 - 104 cm??? LV Systolic Volume MOD BP 30.3 cm??? 22 - 58 / 19 - 49 cm??? LV Ejection Fraction MOD BP 62.0 % >= 55 % LV Cardiac Index MOD BP 1517.3 cm???/min???m??? LV Diastolic Volume MOD 4C 69.9 cm??? LV Systolic Volume MOD 4C 27.3 cm??? LV Ejection Fraction MOD 4C 60.9 % LV Cardiac Index MOD 4C 1306.9 cm???/min???m??? LV Diastolic Length 4C 7.1 cm LV Systolic Length 4C 5.7 cm LV Diastolic Volume MOD 2C 84.5 cm??? LV Systolic Volume MOD 2C 33.6 cm??? LV Ejection Fraction MOD 2C 60.2 % LV Cardiac Index MOD 2C 1562.2 cm???/min???m??? LV Diastolic Length 2C 7.7 cm LV Systolic Length 2C 5.7 cm Ascending Aorta Diameter 3.4 cm DOPPLER AV Peak Velocity 187.1 cm/s AV Peak Gradient 14.0 mmHg AV Mean Velocity 115.1 cm/s AV Mean Gradient 6.3 mmHg AV Velocity Time Integral 38.0 cm LVOT Peak Velocity 128.1 cm/s LVOT Peak Gradient 6.6 mmHg LVOT Velocity Time Integral 26.2 cm LVOT Stroke Volume 104.0 cm??? LVOT Stroke Volume Index 52.8 ml/m??? LVOT Cardiac Index 3192.8 cm???/min???m??? AV Area Cont Eq vti 2.7 cm??? AV Area Cont Eq pk 2.7 cm??? PV Peak Velocity 62.8 cm/s PV Peak Gradient 1.6 mmHg FINDINGS Left Ventricle Left ventricular ejection fraction is estimated at 60 %. Left ventricular cavity size normal. Left ventricular wall thickness normal. No obvious regional wall motion abnormalities. Right Ventricle Normal right ventricular size and function. Unable to estimate the right ventricular systolic pressure. Right Atrium Right atrium not well visualized. Left Atrium Left atrium not well visualized. Mitral Valve Structurally normal mitral valve. No evidence for mitral valve prolapse. No mitral stenosis. Mild mitral regurgitation. Aortic Valve Bioprosthetic aortic valve without stenosis with a peak velocity of 1.9 m/s, peak gradient 14 mmHg, mean gradient 6 mmHg, and estimated aortic valve area of 2.7 cm???. Mild periprosthetic valve regurgitation. Tricuspid Valve Structurally normal tricuspid valve. No tricuspid stenosis. No tricuspid regurgitation. Pulmonic Valve Pulmonic valve not well visualized. No pulmonic stenosis. Mild pulmonic regurgitation. Pericardium No pericardial effusion. Aorta Normal size aortic root and proximal ascending aorta. CONCLUSIONS Preserved LV systolic function Stable bioprosthetic aortic valve with normal function and mild regurgitation Previewed by: Dr. Boris Pierce MD (Electronically Signed) Final Date: 17 October 2023 16:14
== END | disposition home or self-care (01) ==
LOC: RADECHMAIN 14:35
PROVIDERS: ATTEND Internal Medicine
DX: I35.0 Nonrheumatic aortic (valve) stenosis (principal); Z95.3 Presence of xenogenic heart valve
CPT/HCPCS: 93306

== ENCOUNTER → 2024-03-26 | Outpatient (CLI) | payer MEDICARE ==
--- NOTE | 2024-03-27 17:29 | CA ---
Transthoracic Echo Report Name: Oskar Stinson Age: 89 Gender: M : 1935 Exam Date: 03/26/2024 11:28 Exam Location: [facility] Ht (in): 72 Wt (lb): 168 Ordering Physician: Doug Leal MD Attending/Referring Phys: Self Propelled Mining Machine Operator Maria Del Carmen Lyman RDCS Procedure CPT: Indications: R42 DIZZY R55 SYNCOPE Cardiac Hx: Technical Quality: Fair Contrast 1: Total Dose (mL): Contrast 2: Total Dose (mL): MEASUREMENTS (Male / Female) Normal Values 2D ECHO LV Diastolic Diameter PLAX 3.9 cm 4.2 - 5.9 / 3.9 - 5.3 cm LV Systolic Diameter PLAX 1.8 cm IVS Diastolic Thickness 1.2 cm 0.6 - 1.0 / 0.6 - 0.9 cm LVPW Diastolic Thickness 1.3 cm 0.6 - 1.0 / 0.6 - 0.9 cm LV Relative Wall Thickness 0.6 RV Internal Dim ED PLAX 1.9 cm LVOT Diameter 1.9 cm LA Systolic Diameter LX 3.8 cm 3.0 - 4.0 / 2.7 - 3.8 cm LV Diastolic Volume MOD BP 39.4 cm??? 67 - 155 / 56 - 104 cm??? LV Systolic Volume MOD BP 14.0 cm??? / 19 - 49 cm??? LV Ejection Fraction MOD BP 64.4 % >= 55 % LV Cardiac Index MOD BP 1071.4 cm???/min???m??? LV Diastolic Volume MOD 4C 38.9 cm??? LV Systolic Volume MOD 4C 14.4 cm??? LV Ejection Fraction MOD 4C 63.1 % LV Cardiac Index MOD 4C 1036.2 cm???/min???m??? LV Diastolic Length 4C 6.0 cm LV Systolic Length 4C 4.8 cm LV Diastolic Volume MOD 2C 39.8 cm??? LV Systolic Volume MOD 2C 13.6 cm??? LV Ejection Fraction MOD 2C 66.0 % LV Cardiac Index MOD 2C 1109.0 cm???/min???m??? LV Diastolic Length 2C 6.1 cm LV Systolic Length 2C 4.7 cm LA Volume 56.7 cm??? - 58 / 22 - 52 cm??? LA Volume Index 28.8 cm???/m??? 16 - 28 cm???/m??? M-MODE Aortic Root Diameter MM 2.4 cm LA Systolic Diameter MM 4.9 cm LA Ao Ratio MM 2.1 DOPPLER AV Peak Velocity 256.6 cm/s AV Peak Gradient 26.3 mmHg AV Mean Velocity 166.9 cm/s AV Mean Gradient 13.2 mmHg AV Velocity Time Integral 60.1 cm AI Peak Velocity 171.0 cm/s AI Peak Gradient 11.7 mmHg AI Pressure Half Time 452.6 ms LVOT Peak Velocity 76.2 cm/s LVOT Peak Gradient 2.3 mmHg LVOT Velocity Time Integral 23.1 cm LVOT Stroke Volume 65.1 cm??? LVOT Stroke Volume Index 32.9 ml/m??? LVOT Cardiac Index 2745.6 cm???/min???m??? AV Area Cont Eq vti 1.1 cm??? AV Area Cont Eq pk 0.8 cm??? TR Peak Velocity 285.7 cm/s TR Peak Gradient 32.6 mmHg FINDINGS Left Ventricle Left ventricular ejection fraction is estimated at 55-60%. Mildly increased septal wall thickness. Normal left ventricular systolic function with no obvious regional wall motion abnormalities. Left ventricular cavity size normal. Right Ventricle Normal right ventricular size and function. Right ventricular systolic pressure within normal limits. Right Atrium Mild right atrial dilatation. Left Atrium Mild left atrial dilatation. Mitral Valve Structurally normal mitral valve. [id number] mitral regurgitation. No mitral stenosis. Aortic Valve Normally functioning bioprosthetic aortic valve without stenosis with a peak velocity of 2.5 m/s, peak gradient 26mmHg, mean gradient 13mmHg .Mild periprosthetic regurgitation of the aortic valve. Tricuspid Valve Structurally normal tricuspid valve. Mild tricuspid regurgitation. No tricuspid stenosis. Pulmonic Valve Structurally normal pulmonic valve. Moderate pulmonic regurgitation. No pulmonic stenosis. Pericardium No pericardial or pleural effusion. Aorta Normal size aortic root and proximal ascending aorta. CONCLUSIONS LVEF 55 to 60% No obvious regional wall motion abnormality Mild biatrial dilatation Moderate mitral regurgitation TAVR bioprosthetic aortic valve, mean gradient 30 mmHg, mild paravalvular leak RVSP 33 mmHg, mild tricuspid regurg Previewed by: Dr Holden Cruz (Electronically Signed) Final Date: 27 March 2024 17:28
== END | disposition home or self-care (01) ==
LOC: RADECHMAIN 11:20
PROVIDERS: ATTEND Family Medicine
DX: R42 Dizziness and giddiness (principal); R55 Syncope and collapse; I08.1 Rheumatic disorders of both mitral and tricuspid valves; I35.1 Nonrheumatic aortic (valve) insufficiency; I37.1 Nonrheumatic pulmonary valve insufficiency; Z95.3 Presence of xenogenic heart valve
CPT/HCPCS: 93306

== ENCOUNTER → 2024-04-01 | Outpatient (CLI) | payer MEDICARE ==
--- NOTE | 2024-04-16 03:58 | HM ---
HOLTER MONITOR REPORT STUDY: A 72-hour Holter. The patient's rhythm is atrial fibrillation with variable ventricular rate. There are several episodes of bradycardia mostly at nighttime. Short runs of wide QRS tachycardia are noted, probably aberrancy, but could also be ventricular in origin. There were 2 episodes that the patient recorded and they pretty much reveal atrial fibrillation with a controlled variable ventricular rate. No significant arrhythmia noted. FINAL IMPRESSION: This is a 72-hour Holter, average heart rate is 61 beats per minute. Several episodes of bradycardia. Rhythm is atrial fibrillation. There are frequent isolated PVCs, some of them 4 beats in a row. The PVC burden is in the 10% range. Several episodes of bradycardia, but not symptomatic. Heart rate average is 61 beats per minute. Lowest is 33. MMRAFAEL / EARLEN: [id number] /
== END | disposition home or self-care (01) ==
LOC: RADECHMAIN 08:03
PROVIDERS: ATTEND Family Medicine
DX: I49.3 Ventricular premature depolarization (principal); I48.91 Unspecified atrial fibrillation; R06.2 Wheezing; R42 Dizziness and giddiness; R55 Syncope and collapse; R00.1 Bradycardia, unspecified
CPT/HCPCS: 93225

== ENCOUNTER → 2024-11-26 | Outpatient (CLI) | payer MEDICARE | LOC: CPPFTMAIN 14:03 | PROVIDERS: ATTEND Internal Medicine | DX: R06.02 Shortness of breath (principal); F17.200 Nicotine dependence, unspecified, uncomplicated | CPT/HCPCS: 94060; 94726; 94729 ==